=== PATIENT | female | born 1975 | race Caucasian/White ===

== ENCOUNTER 2018-05-27 08:50 | Day surgery (SDC) | payer BC ==
[2018-05-26 12:05] LABS: CHLORIDE,CL 105 mmol/L (98-107); SODIUM,NA 138 mmol/L (136-145)
[~2018-05-27 08:50] MED LIST: Fluorescein 5 ML Vial ONE; Sodium Chloride 0.9% 10 ML Syringe FLUSH PRN; Sodium Chloride 0.9% 2.5 ML Syringe FLUSH PRN; ceFAZolin 2 GM in Premix Bag 1 BAG IV ONE
[2018-05-27] MEDS ORDERED: Scopolamine 1.5 MG Transdermal Patch TRDERM PRN (09:30)
--- NOTE | 2018-05-27 09:34 | PCM.PREANE ---
Preanesthetic Assessment - Anesthesia/Transfusion/Family Hx Anesthesia History: Prior Anesthesia Without Reaction Other Type of Anesthesia Reaction Comment: hx: motion sickness, Always get sick w/anesthesia need pre-medication Family History of Anesthesia Reaction: No Transfusion History: No Prior Transfusion(s) Intubation History: Unknown - Review of Systems General: No Symptoms Pulmonary: No Symptoms Cardiovascular: No Symptoms Gastrointestinal: No Symptoms Neurological: No Symptoms Other: Reports: None - Physical Assessment Height: 1.57 m Weight: 53.524 kg ASA Class: 2 Mental Status: Alert & Oriented x3 Airway Class: Mallampati = 2 Dentition: Reports: Normal Dentition, Bridge (upper and lower left (back)), Implants (x1 upper right (back)) Thyro-Mental Finger Breadths: 3 Mouth Opening Finger Breadths: 3 ROM/Head Extension: Full Lungs: Clear to Auscultation, Normal Respiratory Effort Cardiovascular: Regular Rate, Regular Rhythm - Lab Values: Laboratory Last Values WBC 7.37 K/uL (4.0-11.0) 05/26/18 11:01 RBC 4.18 M/uL (4.30-5.90) L 05/26/18 11:01 Hgb 13.6 g/dL (12.0-16.0) 05/26/18 11:01 Hct 41.0 % (36.0-46.0) 05/26/18 11:01 MCV 98.1 fL (80.0-98.0) H 05/26/18 11:01 MCH 32.5 pg (27.0-32.0) H 05/26/18 11:01 MCHC 33.2 g/dL (31.0-37.0) 05/26/18 11:01 RDW Std Deviation 48.5 fl (28.0-62.0) 05/26/18 11:01 RDW Coeff of Aristides 14 % (11.0-15.0) 05/26/18 11:01 Plt Count 171 K/uL (150-400) 05/26/18 11:01 MPV 10.90 fL (7.40-12.00) 05/26/18 11:01 Nucleated RBC % 0.0 /100WBC 05/26/18 11:01 Nucleated RBCs # 0 K/uL 05/26/18 11:01 Sodium 138 mmol/L (136-145) 05/26/18 11:01 Potassium 4.1 mmol/L (3.5-5.1) 05/26/18 11:01 Chloride 105 mmol/L (98-107) 05/26/18 11:01 Carbon Dioxide 27.6 mmol/L (21.0-32.0) 05/26/18 11:01 BUN 12 mg/dL (7.0-18.0) 05/26/18 11:01 Creatinine 0.8 mg/dL (0.6-1.0) 05/26/18 11:01 Est Cr Clr Drug Dosing 72.45 mL/min 05/26/18 11:01 Estimated GFR (MDRD) > 60.0 ml/min 05/26/18 11:01 Glucose 83 mg/dL (74-106) 05/26/18 11:01 Calcium 8.9 mg/dL (8.5-10.1) 05/26/18 11:01 HCG, Qual NEGATIVE (NEG) 05/26/18 11:01 Blood Type O POSITIVE 05/26/18 11:01 Antibody Screen NEGATIVE 05/26/18 11:01 - Allergies Allergies/Adverse Reactions: Allergies Allergy/AdvReac Type Severity Reaction Status Date / Time No Known Allergies Allergy Verified 05/24/18 12:14 - Blood Blood Available: No - Anesthesia Plan Pre-Op Medication Ordered: None - Acknowledgements Anesthesia Type Planned: General Anesthesia Pt an Appropriate Candidate for the Planned Anesthesia: Yes Alternatives and Risks of Anesthesia Discussed w Pt/Guardian: Yes Pt/Guardian Understands and Agrees with Anesthesia Plan: Yes PreAnesthesia Questionnaire - Past Health History Medical/Surgical History: Denies Medical/Surgical History HEENT History: Reports: Other (See Below) Other HEENT History: wears glasses/contacts Cardiovascular History: Reports: Other (See Below) Other Cardiovascular History: varicose veins Genitourinary History: Reports: None 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: Musculoskeletal History: Reports: Back Pain, Chronic, Fracture Other Musculoskeletal History: hx fx foot Neurological History: Reports: None, Other (See Below) (h/o migrains, no more) Psychiatric History: Reports: Anxiety Endocrine/Metabolic History: Reports: None Hematologic History: Reports: Anemia Immunologic History: Reports: None Oncologic (Cancer) History: Reports: None Dermatologic History: Reports: None - Past Surgical History Head Surgeries/Procedures: Reports: None Female Surgical History: Reports: Breast Implant, Cystectomy, Other (See Below) Other Female Surgeries/Procedures: breast augmentation, laparotomy with ovarian cystectomy Musculoskeletal Surgical History: Reports: Arthroscopic Knee, Other (See Below) Other Musculoskeletal Surgeries/Procedures:: Right knee meniscectomy and cyst removed - SUBSTANCE USE Smoking Status *Q: Current Every Day Smoker (1 ppd) Tobacco Use Within Last Twelve Months: Cigarettes Recreational Drug Use History: No - HOME MEDS Home Medications: Home Meds Ibuprofen [Motrin] 2 - 3 tab PO ASDIRECTED PRN 05/24/18 [History] Melatonin 1 tab PO BEDTIME PRN 05/24/18 [History] - CURRENT (IN HOUSE) MEDS Current Meds: Current Medications Lactated Ringer's (Ringers, Lactated) 1,000 mls @ 500 mls/hr IV .BOLUS MARJORIE Scopolamine (Transderm-Scop) 1.5 mg TRDERM Q72H PRN PRN Reason: Nausea Sodium Chloride (Saline Flush) 10 ml FLUSH ASDIRECTED PRN PRN Reason: Keep Vein Open Sodium Chloride (Saline Flush) 2.5 ml FLUSH ASDIRECTED PRN PRN Reason: Keep Vein Open Discontinued Medications Fluorescein Sodium (Ak-Fluor) Confirm Administered Dose 5 ml .ROUTE .STK-MED ONE Stop: 05/27/18 07:22 Cefazolin Sodium/Dextrose 2 gm (/ Premix) 50 mls @ 100 mls/hr IV ONETIME ONE Stop: 05/26/18 10:30
[2018-05-27] MEDS: Lactated Ringers 1,000 ML IV SCH ×2 (09:35→16:42)
[2018-05-27] MEDS ORDERED: Rocuronium 10 MG/ML 10 ML Syringe ONE (10:14)
[2018-05-27] MEDS ORDERED: Lidocaine 2% 5 ML SDV ONE (10:14)
[2018-05-27] MEDS ORDERED: Ondansetron 4 MG/2 ML SDV ONE (10:14)
[2018-05-27] MEDS ORDERED: Propofol 200 MG/20 ML SDV ONE (10:15)
[2018-05-27] MEDS ORDERED: Midazolam 1 MG/ML 2 ML SDV ONE (10:15)
[2018-05-27] MEDS ORDERED: fentaNYL 250 MCG/5 ML SDV ONE (10:16)
[2018-05-27] MEDS ORDERED: Furosemide 40 MG/4 ML VIAL ONE (12:15)
[2018-05-27] MEDS ORDERED: Ketorolac 30 MG/ML SDV ONE (12:19)
[2018-05-27] MEDS: fentaNYL 100 MCG/2 ML SDV IVPUSH PRN ×4 (12:53→13:20)
[2018-05-27] MEDS ORDERED: Ketorolac 30 MG/ML SDV IVPUSH ONE (13:15)
[2018-05-27] MEDS ORDERED: Promethazine 25 MG/ML SDV IM PRN (13:15)
[2018-05-27] MEDS ORDERED: Morphine 4 MG/ML Syringe IVPUSH PRN (13:15)
[2018-05-27] MEDS ORDERED: Acetaminophen/oxyCODONE 325-5 MG Tab PO PRN ×2 (13:15)
--- NOTE | 2018-05-27 13:21 | PCM.OPNOTE ---
- General Post-Op/Procedure Note Date of Surgery/Procedure: 05/27/18 Operative Procedure(s): TVH,B. Salpengectomy, Cystoscopy and TVT Post-Op Diagnosis: Same Anesthesia Technique: General ET Tube Primary Surgeon: Santo Elmore [employer]asting Coal Miner: Andressa Harris EBL in mLs: 150 Complications: None Condition: Good Free Text/Narrative:: Intake & Output 05/26/18 05/27/18 05/27/18 22:59 06:59 14:59 Output Total 50 Balance -50
--- NOTE | 2018-05-27 13:29 | PCM.POSTAN ---
POST ANESTHESIA ASSESSMENT - MENTAL STATUS Mental Status: Alert, Oriented - RESPIRATORY Respiratory Status: Respiratory Rate WNL, Airway Patent, O2 Saturation Stable - CARDIOVASCULAR CV Status: Pulse Rate WNL, Blood Pressure Stable - GASTROINTESTINAL GI Status: No Symptoms - PAIN Pain Score: 3 - POST OP HYDRATION Hydration Status: Adequate & Stable - OBSERVATIONS Free Text/Narrative:: no anesthesia problems
[2018-05-27] MEDS: Ondansetron 4 MG/2 ML SDV IVPUSH PRN ×2 (14:49→20:52)
[2018-05-27] MEDS: Ketorolac 30 MG/ML SDV IVPUSH PRN (19:07)
[2018-05-27] MEDS ORDERED: Acetaminophen 1,000 MG in Premix Bag 1 BAG IV ONE (19:16)
--- NOTE | 2018-05-27 19:50 | PCM48HPAN ---
Post Anesthesia Note - EVALUATION WITHIN 48HRS OF ANESTHETIC Vital Signs in Normal Range: Yes Patient Participated in Evaluation: Yes Respiratory Function Stable: Yes Airway Patent: Yes Cardiovascular Function Stable: Yes Hydration Status Stable: Yes Pain Control Satisfactory: Yes (Resting quietly now) Nausea and Vomiting Control Satisfactory: Yes (Currently better) Mental Status Recovered: Yes Resp Rate: 16 - COMMENTS/OBSERVATIONS Free Text/Narrative:: Patient was having nausea, vomiting and pain when I initially entered her room. She was sitting up in bed with an emesis bag and stated that she thought she was having nausea from pain but pain meds make her more nauseated. RN contacted and patient given IV Toradol, IV Tylenol and Phenergan IM. Now in patient room she is asleep and resting quietly.
[2018-05-28] MEDS: Lactated Ringers 1,000 ML IV SCH ×3 (00:19→07:49)
[2018-05-28] MEDS: Ketorolac 30 MG/ML SDV IVPUSH PRN (01:10)
[2018-05-28] MEDS: Ondansetron 4 MG/2 ML SDV IVPUSH PRN ×2 (03:44→09:05)
[2018-05-28 06:14] LABS: CHLORIDE,CL 103 mmol/L (98-107); SODIUM,NA 136 mmol/L (136-145)
[2018-05-28 07:53] VITALS: BP 96/51
--- NOTE | 2018-05-28 10:47 | PCM.PN ---
- General Info Date of Service: 05/28/18 Functional Status: Reports: Pain Controlled - Review of Systems General: Reports: No Symptoms HEENT: Reports: No Symptoms Pulmonary: Reports: No Symptoms Cardiovascular: Reports: No Symptoms Gastrointestinal: Reports: No Symptoms Genitourinary: Reports: No Symptoms Musculoskeletal: Reports: No Symptoms Skin: Reports: No Symptoms Neurological: Reports: No Symptoms Psychiatric: Reports: No Symptoms - Patient Data Vitals - Most Recent: Last Vital Signs Temp 37.6 C 05/28/18 07:52 Pulse 56 L 05/28/18 07:52 Resp 14 05/28/18 07:52 BP 96/51 L 05/28/18 07:52 Pulse Ox 95 05/28/18 07:52 Weight - Most Recent: 53.524 kg I&O - Last 24 Hours: Intake & Output 05/27/18 05/28/18 05/28/18 22:59 06:59 14:59 Intake Total 320 120 Output Total 0 750 Balance 320 -630 Lab Results Last 24 Hours: Laboratory Results - last 24 hr 05/28/18 05/28/18 Range/Units 05:12 05:12 WBC 14.22 H (4.0-11.0) K/uL RBC 3.21 L (4.30-5.90) M/uL Hgb 10.5 L (12.0-16.0) g/dL Hct 31.1 L (36.0-46.0) % MCV 96.9 (80.0-98.0) fL MCH 32.7 H (27.0-32.0) pg MCHC 33.8 (31.0-37.0) g/dL RDW Std Deviation 47.1 (28.0-62.0) fl RDW Coeff of Aristides 13 (11.0-15.0) % Plt Count 148 L (150-400) K/uL MPV 11.20 (7.40-12.00) fL Neut % (Auto) 77.9 (48.0-80.0) % Lymph % (Auto) 11.4 L (16.0-40.0) % [place] % (Auto) 10.5 (0.0-15.0) % Eos % (Auto) 0.1 (0.0-7.0) % Baso % (Auto) 0.1 (0.0-1.5) % Neut # (Auto) 11.1 H (1.4-5.7) K/uL Lymph # (Auto) 1.6 (0.6-2.4) K/uL [place] # (Auto) 1.5 H (0.0-0.8) K/uL Eos # (Auto) 0.0 (0.0-0.7) K/uL Baso # (Auto) 0.0 (0.0-0.1) K/uL Nucleated RBC % 0.0 /100WBC Nucleated RBCs # 0 K/uL Sodium 136 (136-145) mmol/L Potassium 3.7 (3.5-5.1) mmol/L Chloride 103 (98-107) mmol/L Carbon Dioxide 25.8 (21.0-32.0) mmol/L BUN 10 (7.0-18.0) mg/dL Creatinine 0.9 (0.6-1.0) mg/dL Est Cr Clr Drug Dosing 64.40 mL/min Estimated GFR (MDRD) > 60.0 ml/min Glucose 115 H (74-106) mg/dL Calcium 8.1 L (8.5-10.1) mg/dL Med Orders - Current: Current Medications Fentanyl (Sublimaze) 50 mcg IVPUSH SEECOMMENT PRN PRN Reason: Pain (moderate 4-6) Last Admin: 05/27/18 13:20 Dose: 50 mcg Lactated Ringer's (Ringers, Lactated) 1,000 mls @ 500 mls/hr IV .BOLUS REPLACED BY [facility] Last Infusion: 05/27/18 11:35 Dose: Infused Lactated Ringer's (Ringers, Lactated) 1,000 mls @ 125 mls/hr IV ASDIRECTED REPLACED BY [facility] Last Admin: 05/28/18 07:49 Dose: 125 mls/hr Ketorolac Tromethamine (Toradol) 30 mg IVPUSH Q6H PRN PRN Reason: Pain (severe 7-10) Stop: 06/01/18 13:15 Last Admin: 05/28/18 01:10 Dose: 30 mg Morphine Sulfate (Morphine) 4 mg IVPUSH Q2H PRN PRN Reason: Pain (severe 7-10) Last Admin: 05/28/18 03:50 Dose: 4 mg Ondansetron HCl (Zofran) 4 mg IVPUSH Q6H PRN PRN Reason: Nausea/Vomiting Last Admin: 05/28/18 09:05 Dose: 4 mg Oxycodone/Acetaminophen (Percocet 325-5 Mg) 1 tab PO Q4H PRN PRN Reason: Pain (moderate 4-6) Oxycodone/Acetaminophen (Percocet 325-5 Mg) 2 tab PO Q4H PRN PRN Reason: Pain (moderate 4-6) Last Admin: 05/28/18 09:07 Dose: 2 tab Promethazine HCl (Phenergan) 25 mg IM Q6H PRN PRN Reason: Nausea/Vomiting Last Admin: 05/27/18 19:13 Dose: 25 mg Scopolamine (Transderm-Scop) 1.5 mg TRDERM Q72H PRN PRN Reason: Nausea Last Admin: 05/27/18 09:37 Dose: 1.5 mg Sodium Chloride (Saline Flush) 10 ml FLUSH ASDIRECTED PRN PRN Reason: Keep Vein Open Sodium Chloride (Saline Flush) 2.5 ml FLUSH ASDIRECTED PRN PRN Reason: Keep Vein Open Discontinued Medications Fentanyl (Sublimaze) Confirm Administered Dose 250 mcg .ROUTE .STK-MED ONE Stop: 05/27/18 10:17 Fluorescein Sodium (Ak-Fluor) Confirm Administered Dose 5 ml .ROUTE .STK-MED ONE Stop: 05/27/18 07:22 Furosemide (Lasix) Confirm Administered Dose 40 mg .ROUTE .STK-MED ONE Stop: 05/27/18 12:16 Cefazolin Sodium/Dextrose 2 gm (/ Premix) 50 mls @ 100 mls/hr IV ONETIME ONE Stop: 05/26/18 10:30 Last Admin: 05/27/18 14:17 Dose: Not Given Acetaminophen (Ofirmev) Confirm Administered Dose 100 mls @ as directed IV .STK- MED ONE Stop: 05/27/18 09:48 Cefazolin Sodium/Dextrose (Ancef) Confirm Administered Dose 50 mls @ as directed .ROUTE .STK-MED ONE Stop: 05/27/18 10:25 Acetaminophen 1,000 mg/ Premix 100 mls @ 400 mls/hr IV NOW ONE Stop: 05/27/18 19:30 Last Admin: 07/12/18 19:22 Dose: 400 mls/hr Ketorolac Tromethamine (Toradol) Confirm Administered Dose 30 mg .ROUTE .STK- MED ONE Stop: 05/27/18 12:20 Ketorolac Tromethamine (Toradol) 30 mg IVPUSH ONETIME ONE Stop: 05/27/18 13:16 Last Admin: 05/27/18 14:17 Dose: Not Given Lidocaine (Xylocaine-Mpf 2%) Confirm Administered Dose 5 ml .ROUTE .STK-MED ONE Stop: 05/27/18 10:15 Midazolam HCl (Versed 1 Mg/Ml) Confirm Administered Dose 2 mg .ROUTE .STK-MED ONE Stop: 05/27/18 10:16 Ondansetron HCl (Zofran) Confirm Administered Dose 4 mg .ROUTE .STK-MED ONE Stop: 05/27/18 10:15 Propofol (Diprivan 20 Ml) Confirm Administered Dose 200 mg .ROUTE .STK-MED ONE Stop: 05/27/18 10:16 Rocuronium [place] (Zemuron) Confirm Administered Dose 100 mg .ROUTE .STK-MED ONE Stop: 05/27/18 10:15 - Exam General: Alert, Oriented HEENT: Pupils Equal, Pupils Reactive, EOMI, Mucous Membr. Moist/[place] Neck: Supple Lungs: Clear to Auscultation, Normal Respiratory Effort Cardiovascular: Regular Rate, Regular Rhythm GI/Abdominal Exam: Normal Bowel Sounds, Soft, Non-Tender, No Organomegaly, No Distention, No Abnormal Bruit, No Mass, Pelvis Stable (Female) Exam: Normal External Exam, Normal Speculum Exam, Normal Bimanual Exam Back Exam: Normal Inspection, Full Range of Motion Extremities: Normal Inspection, Normal Range of Motion, Non-Tender, No Pedal Edema, Normal Capillary Refill Skin: Warm, Dry, Intact Wound/Incisions: Healing Well Neurological: No New Focal Deficit Psy/Mental Status: Alert, Normal Affect, Normal Mood - Problem List Review Problem List Initiated/Reviewed/Updated: Yes - My Orders Last 24 Hours: My Active Orders 05/27/18 13:15 Patient Status [ADT] Routine Notify Provider Vital Signs [RC] ASDIRECTED RT Incentive Spirometry [RC] Q2HWA Up With Assistance [RC] PER UNIT ROUTINE Up ad Sravanthi [RC] PER UNIT ROUTINE Vital Signs [RC] Q4H Acetaminophen/oxyCODONE [Percocet 325-5 MG] 1 tab PO Q4H PRN Acetaminophen/oxyCODONE [Percocet 325-5 MG] 2 tab PO Q4H PRN Ketorolac [Toradol] 30 mg IVPUSH Q6H PRN Morphine 4 mg IVPUSH Q2H PRN Ondansetron [Zofran] 4 mg IVPUSH Q6H PRN Promethazine [Phenergan] 25 mg IM Q6H PRN Peripheral IV Discontinue [OM.PC] Routine Sequential Compression Device [OM.PC] Per Unit Routine Resuscitation Status Routine 05/27/18 16:15 Lactated Ringers [Ringers, Lactated] 1,000 ml IV ASDIRECTED 05/27/18 Dinner Regular Diet [DIET] - Assessment Assessment:: doing well.
--- NOTE | 2018-05-28 12:25 | OR ---
SURGEON: Santo Elmore MD DATE OF PROCEDURE: 05/27/2018 PREOPERATIVE DIAGNOSES: 1. Menometrorrhagia. 2. Stress urinary incontinence. POSTOPERATIVE DIAGNOSES: 1. Menometrorrhagia. 2. Stress urinary incontinence. OPERATIONS PERFORMED: Total vaginal hysterectomy, bilateral vaginal salpingectomy preserving both ovaries, Solyx TVT, and cystoscopy. GASOLINE SERVICE ATTENDANT: SKYE Patino. ANESTHESIA: General endotracheal intubation, Joyce Isaias. ESTIMATED BLOOD LOSS: Less than 100 mL. COMPLICATIONS: None. FINDINGS: Uterus about 8 week size. The patient has abnormal urethrovesical angle. INDICATION FOR SURGERY: [place] refer to the admit note. PROCEDURE IN DETAIL: The patient was brought to the OR, properly identified. After adequate level of anesthesia, the patient placed in lithotomy position, prepped and draped in sterile fashion as usual. A circular incision in the vaginal mucosa was done around the cervix and then the posterior cul-de-sac was entered with the Howe scissor posteriorly. Short weighted speculum replaced with extending long weighted speculum. The uterosacral ligament identified from both sides, clamped with curved Zeppelin, transected, and suture ligated with 2-0 Vicryl pop-off and held for further identification. The same thing done with the cardinal ligament and the cervicovesical space opened. The bladder retracted completely away from the operative field. The broad ligaments clamped with a curved Zeppelin, transected, and suture ligated with 2-0 Vicryl pop-off. The uterine vessel suture ligated at this step. The uterus was removed and the superior pedicle was clamped at 90 degree Zeppelin. Both the tubes included with the specimen. Both ovaries are preserved. Then the superior pedicle was tied with 2-0 Vicryl twice on both sides. Inspection of the operative field shows no oozing, no bleeding. Then the vaginal cuff was closed with 2-0 Vicryl interrupted figure-of- eight suture. While we were doing that, after that the anterior vaginal wall beneath the urethra was injected with copious amount of normal saline and opened in the midline, dissected laterally in a tunneling fashion to make a tunnel and room for the Solyx TVT. The Solyx TVT placed in place and put with undue amount of tension to elevate the urethrovesical angle and once this got accomplished, then the vaginal cuff was closed with 2-0 Vicryl and 3-0 Vicryl continuous. While we were doing that, we asked the Anesthesia people to give the patient 5 mg of fluorescein and then cystoscopy performed. The bladder was intact. Both ureteric orifices were seen with the dye coming from both of them, thus the patency of both ureters verified. Satisfied with these findings, the procedure ended. Instruments, hardware retrieved from the vagina. Instrument sponge count was correct. The patient tolerated the procedure well, went to recovery room in stable general condition. ASHLEY FIELDS /[id number]
== END 2018-05-28 12:55 | disposition home or self-care (01) ==
LOC: MW.SDS 08:50 → MW.MS 13:41 → MW.SDS 05-28 12:55
PROVIDERS: ATTEND Obstetrics & Gynecology
DX: N92.1 Excessive and frequent menstruation with irregular cycle (principal); N39.3 Stress incontinence (female) (male); I10 Essential (primary) hypertension; F17.210 Nicotine dependence, cigarettes, uncomplicated; Z79.899 Other long term (current) drug therapy; Z88.6 Allergy status to analgesic agent; Z88.5 Allergy status to narcotic agent
CPT/HCPCS: 36415; 57288; 58262; 80048; 84703; 85025; 85027; 86850; 86900; 86901; A9270; J0690; J1885; J1940; J2250; J2270; J2405; J2550; J3010; J7120; C1771; J2704

== ENCOUNTER 2019-11-01 17:47 | Observation (INO) | payer BC ==
[2019-11-01] MEDS ORDERED: Ondansetron 4 MG/2 ML SDV IVPUSH ONE (18:04)
[2019-11-01] MEDS ORDERED: Sodium Chloride 0.9% 1,000 ML IV ONE (18:04)
[2019-11-01] MEDS ORDERED: Ketorolac 30 MG/ML SDV IVPUSH ONE (18:04)
--- NOTE | 2019-11-01 18:08 | EDM.PDOC ---
<Efren Hunt - Last Filed: 11/01/19 18:47> ED HPI GENERAL MEDICAL PROBLEM - General Chief Complaint: Abdominal Pain Stated Complaint: ABDOMINAL PAIN Time Seen by Provider: 11/01/19 18:05 Source of Information: Reports: Patient - History of Present Illness INITIAL COMMENTS - FREE TEXT/NARRATIVE: HISTORY AND PHYSICAL: History of present illness: [patient presents with abd pain 8/10 periumbilical pain that began at 1am, patient c/o nausea no vomit, no f/c/s/cp/iqbal/d/palp h/o BALDEV ] Review of systems: As per history of present illness and below otherwise all systems reviewed and negative. Past medical history: As per history of present illness and as reviewed below otherwise noncontributory. Surgical history: As per history of present illness and as reviewed below otherwise noncontributory. Social history: No reported history of drug or alcohol abuse. Family history: As per history of present illness and as reviewed below otherwise noncontributory. Physical exam: HEENT: Atraumatic, normocephalic, pupils reactive, negative for conjunctival pallor or scleral icterus, mucous membranes moist, throat clear, neck supple, nontender, trachea midline. Lungs: Clear to auscultation, breath sounds equal bilaterally, chest nontender. Heart: S1S2, regular, negative for clicks, rubs, or JVD. Abdomen: Soft, nondistended, tenderness on exam with guarding, Negative for masses or hepatosplenomegaly. Negative for costovertebral tenderness. Pelvis: Stable nontender. Genitourinary: Deferred. Rectal: Deferred. Extremities: Atraumatic, negative for cords or calf pain. Neurovascular unremarkable. Neuro: Awake, alert, oriented. Cranial nerves II through XII unremarkable. Cerebellum unremarkable. Motor and sensory unremarkable throughout. Exam nonfocal. Diagnostics: [cbc, cmp, ua, lip, lactic acid, BCx X 2 ct abd/pelvis w wo ] Therapeutics: [NS toradol zofran patient will be signed out to Dr. Whitten to follow CT / lab and final disposition ] Impression: [abdominal pain ] Definitive disposition and diagnosis as appropriate pending reevaluation and review of above. right lower abd Pain Score (Numeric/FACES): 10 - Related Data Allergies Allergy/AdvReac Type Severity Reaction Status Date / Time No Known Allergies Allergy Verified 12/17/19 18:13 Home Meds: Home Meds Ibuprofen [Motrin] 2 - 3 tab PO ASDIRECTED PRN 05/24/18 [History] Melatonin 1 tab PO BEDTIME PRN 05/24/18 [History] FLUoxetine HCl [Fluoxetine HCl] 1 tab PO DAILY 11/01/19 [History] busPIRone HCl [Buspirone HCl] 1 tab PO DAILY 11/01/19 [History] Past Medical History - Past Health History Medical/Surgical History: Denies Medical/Surgical History HEENT History: Reports: Other (See Below) Other HEENT History: wears glasses/contacts Cardiovascular History: Reports: Other (See Below) Other Cardiovascular History: varicose veins Genitourinary History: Reports: None 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: Musculoskeletal History: Reports: Back Pain, Chronic, Fracture Other Musculoskeletal History: hx fx foot Neurological History: Reports: None, Other (See Below) (h/o migrains, no more) Psychiatric History: Reports: Anxiety Endocrine/Metabolic History: Reports: None Hematologic History: Reports: Anemia Immunologic History: Reports: None Oncologic (Cancer) History: Reports: None Dermatologic History: Reports: None - Past Surgical History Head Surgeries/Procedures: Reports: None Female Surgical History: Reports: Breast Implant, Cystectomy, Other (See Below) Other Female Surgeries/Procedures: breast augmentation, laparotomy with ovarian cystectomy Musculoskeletal Surgical History: Reports: Arthroscopic Knee, Other (See Below) Other Musculoskeletal Surgeries/Procedures:: Right knee meniscectomy and cyst removed Social & Family History - Family History Family Medical History: Noncontributory Course - Vital Signs Last Recorded V/S: Last Vital Signs Temp 37.2 C 11/01/19 18:05 Pulse 72 11/01/19 20:38 Resp 18 11/01/19 18:59 BP 116/74 11/01/19 20:38 Pulse Ox 98 11/01/19 18:59 - Orders/Labs/Meds Orders: Active Orders 24 hr Category Date Time Status Notify Provider Consults [RC] ASDIRECTED Care 11/01/19 20:52 Ordered Consult to Physician [CONS] Stat Cons 11/01/19 20:52 Ordered CULTURE BLOOD [BC] Stat Lab 11/01/19 18:23 Received CULTURE BLOOD [BC] Stat Lab 11/01/19 18:34 Received Sodium Chloride 0.9% [Normal Saline] 1,000 ml Med 11/01/19 20:30 Active IV ASDIRECTED Blood Culture x2 Reflex Set [OM.PC] Stat Oth 11/01/19 18:13 Ordered Medication Orders Sodium Chloride (Normal Saline) 1,000 mls @ 150 mls/hr IV ASDIRECTED MARJORIE Last Admin: 11/01/19 20:36 Dose: 150 mls/hr Labs: Laboratory Tests 11/01/19 11/01/19 11/01/19 Range/Units 18:23 18:23 18:23 WBC 15.39 H (4.0-11.0) K/uL RBC 4.22 L (4.30-5.90) M/uL Hgb 14.3 (12.0-16.0) g/dL Hct 41.8 (36.0-46.0) % MCV 99.1 H (80.0-98.0) fL MCH 33.9 H (27.0-32.0) pg MCHC 34.2 (31.0-37.0) g/dL RDW Std Deviation 49.4 (28.0-62.0) fl RDW Coeff of Aristides 14 (11.0-15.0) % Plt Count 191 (150-400) K/uL MPV 10.90 (7.40-12.00) fL Neut % (Auto) 84.0 H (48.0-80.0) % Lymph % (Auto) 10.6 L (16.0-40.0) % [place] % (Auto) 4.7 (0.0-15.0) % Eos % (Auto) 0.6 (0.0-7.0) % Baso % (Auto) 0.1 (0.0-1.5) % Neut # (Auto) 12.9 H (1.4-5.7) K/uL Lymph # (Auto) 1.6 (0.6-2.4) K/uL Kenton # (Auto) 0.7 (0.0-0.8) K/uL Eos # (Auto) 0.1 (0.0-0.7) K/uL Baso # (Auto) 0.0 (0.0-0.1) K/uL Nucleated RBC % 0.0 /100WBC Nucleated RBCs # 0 K/uL Lactate 1.1 (0.20-2.00) mmol/L Sodium 138 (136-145) mmol/L Potassium 3.5 (3.5-5.1) mmol/L Chloride 101 (98-107) mmol/L Carbon Dioxide 25.3 (21.0-32.0) mmol/L BUN 10 (7.0-18.0) mg/dL Creatinine 0.8 (0.6-1.0) mg/dL Est Cr Clr Drug Dosing 71.71 mL/min Estimated GFR (MDRD) > 60.0 ml/min Glucose 115 H (74-106) mg/dL Calcium 9.1 (8.5-10.1) mg/dL Total Bilirubin 0.5 (0.2-1.0) mg/dL AST 28 (15-37) IU/L ALT 33 (14-63) IU/L Alkaline Phosphatase 90 (46-116) U/L Total Protein 7.4 (6.4-8.2) g/dL Albumin 3.8 (3.4-5.0) g/dL Globulin 3.6 (2.6-4.0) g/dL Albumin/Globulin Ratio 1.1 (0.9-1.6) Lipase 87 (73-393) U/L Urine Color Urine Appearance Urine pH (5.0-8.0) Ur Specific [place] (1.001-1.035) Urine Protein (NEGATIVE) mg/dL Urine Glucose (UA) (NEGATIVE) mg/dL Urine Ketones (NEGATIVE) mg/dL Urine Occult Blood (NEGATIVE) Urine Nitrite (NEGATIVE) Urine Bilirubin (NEGATIVE) Urine Urobilinogen (<2.0) EU/dL Ur Leukocyte Esterase (NEGATIVE) 11/01/19 Range/Units 20:25 WBC (4.0-11.0) K/uL RBC (4.30-5.90) M/uL Hgb (12.0-16.0) g/dL Hct (36.0-46.0) % MCV (80.0-98.0) fL MCH (27.0-32.0) pg MCHC (31.0-37.0) g/dL RDW Std Deviation (28.0-62.0) fl RDW Coeff of Aristides (11.0-15.0) % Plt Count (150-400) K/uL MPV (7.40-12.00) fL Neut % (Auto) (48.0-80.0) % Lymph % (Auto) (16.0-40.0) % [place] % (Auto) (0.0-15.0) % Eos % (Auto) (0.0-7.0) % Baso % (Auto) (0.0-1.5) % Neut # (Auto) (1.4-5.7) K/uL Lymph # (Auto) (0.6-2.4) K/uL [place] # (Auto) (0.0-0.8) K/uL Eos # (Auto) (0.0-0.7) K/uL Baso # (Auto) (0.0-0.1) K/uL Nucleated RBC % /100WBC Nucleated RBCs # K/uL Lactate (0.20-2.00) mmol/L Sodium (136-145) mmol/L Potassium (3.5-5.1) mmol/L Chloride (98-107) mmol/L Carbon Dioxide (21.0-32.0) mmol/L BUN (7.0-18.0) mg/dL Creatinine (0.6-1.0) mg/dL Est Cr Clr Drug Dosing mL/min Estimated GFR (MDRD) ml/min Glucose (74-106) mg/dL Calcium (8.5-10.1) mg/dL Total Bilirubin (0.2-1.0) mg/dL AST (15-37) IU/L ALT (14-63) IU/L Alkaline Phosphatase (46-116) U/L Total Protein (6.4-8.2) g/dL Albumin (3.4-5.0) g/dL Globulin (2.6-4.0) g/dL Albumin/Globulin Ratio (0.9-1.6) Lipase (73-393) U/L Urine Color YELLOW Urine Appearance CLEAR Urine pH 6.5 (5.0-8.0) Ur Specific [place] <= 1.005 (1.001-1.035) Urine Protein NEGATIVE (NEGATIVE) mg/dL Urine Glucose (UA) NEGATIVE (NEGATIVE) mg/dL Urine Ketones NEGATIVE (NEGATIVE) mg/dL Urine Occult Blood NEGATIVE (NEGATIVE) Urine Nitrite NEGATIVE (NEGATIVE) Urine Bilirubin NEGATIVE (NEGATIVE) Urine Urobilinogen 0.2 (<2.0) EU/dL Ur Leukocyte Esterase NEGATIVE (NEGATIVE) Meds: Medications Generic Name Dose Route Start Last Admin Trade Name German PRN Reason Stop Dose Admin Sodium Chloride 1,000 mls @ 150 mls/hr 11/01/19 20:30 11/01/19 20:36 Normal Saline IV 150 mls/hr ASDIRECTED MARJORIE Administration Discontinued Medications Generic Name Dose Route Start Last Admin Trade Name German PRN Reason Stop Dose Admin Sodium Chloride 1,000 mls @ 999 mls/hr 11/01/19 18:04 11/01/19 18:27 Normal Saline IV 11/01/19 19:04 999 mls/hr STAT ONE Administration Ketorolac Tromethamine 30 mg 11/01/19 18:04 11/01/19 18:27 Toradol IVPUSH 11/01/19 18:05 30 mg ONETIME ONE Administration Morphine Sulfate 2 mg 11/01/19 18:55 11/01/19 18:57 Morphine IVPUSH 11/01/19 18:56 2 mg ONETIME ONE Administration Morphine Sulfate Confirm 11/01/19 18:54 11/01/19 19:00 Morphine Administered 11/01/19 18:55 Not Given Dose 2 mg .ROUTE .STK-MED ONE Ondansetron HCl 8 mg 11/01/19 18:04 11/01/19 18:27 Zofran IVPUSH 11/01/19 18:05 8 mg ONETIME ONE Administration Departure - Departure Disposition: Refer to Observation Clinical Impression: Enteritis Abdominal pain Qualifiers: Abdominal location: periumbilical Qualified Code(s): R10.33 - Periumbilical pain Leukocytosis Qualifiers: Leukocytosis type: unspecified Qualified Code(s): D72.829 - Elevated white blood cell count, unspecified - Discharge Information Referrals: Mary Sebastian MD [Primary Care Provider] - Forms: ED Department Discharge Sepsis Event Note - Focused Exam Vital Signs: Vital Signs Temp Pulse Resp BP Pulse Ox 11/01/19 20:38 72 116/74 11/01/19 18:59 75 18 116/53 L 98 11/01/19 18:05 37.2 C 78 20 113/50 L 100 Date Exam was Performed: 11/01/19 Time Exam was Performed: 18:47 - My Orders Last 24 Hours: My Active Orders 11/01/19 20:30 Sodium Chloride 0.9% [Normal Saline] 1,000 ml IV ASDIRECTED 11/01/19 20:52 Notify Provider Consults [RC] ASDIRECTED Consult to Physician [CONS] Stat - Assessment/Plan Last 24 Hours: My Active Orders 11/01/19 20:30 Sodium Chloride 0.9% [Normal Saline] 1,000 ml IV ASDIRECTED 11/01/19 20:52 Notify Provider Consults [RC] ASDIRECTED Consult to Physician [CONS] Stat <Guera Whitten - Last Filed: 11/01/19 20:58> ED HPI GENERAL MEDICAL PROBLEM - History of Present Illness INITIAL COMMENTS - FREE TEXT/NARRATIVE: Fish dictating an addendum note as I have assumed care of this case at 7 PM. I have reviewed all the labs and the significant WBC count of 15,000. The patient has a history of a partial hysterectomy but has no other MANAGER PATHOLOGY issues. She is currently weaned to CAT scan and I will follow-up that test results and discuss with our surgeon on-call Dr. Dewey per Dr. Cohen's instructions. 1941: I had to discuss another case with Dr. Dewey and I did mention this patient to her and the findings up to this point. She would like me to recontact her once the CT scan is available for reevaluation and her input. 2047: Case was discussed with Dr. Aguilar who reviewed the CAT scan and would like the patient to be admitted to medicine and she will come and evaluate the patient and do a formal consult. She would like IV fluids and bowel rest with ice chips only and no antibiotics at this time. The patient was made aware of these findings and of this plan and she is agreeable. I will discuss the case with the hospitalist Dr Pierson for admit Please add to impression above: Ill-defined small bowel inflammation/enteritis, left ovarian/adnexal cyst with leukocytosis ED ROS GENERAL - Review of Systems Review Of Systems: Comprehensive ROS is negative, except as noted in HPI. ED EXAM, GENERAL - Physical Exam Exam: See Below (see dictation) Departure - Departure Time of Disposition: 20:58 Condition: Good Sepsis Event Note - Focused Exam Date Exam was Performed: 11/01/19 Time Exam was Performed: 20:55 - My Orders Last 24 Hours: My Active Orders 11/01/19 20:30 Sodium Chloride 0.9% [Normal Saline] 1,000 ml IV ASDIRECTED 11/01/19 20:52 Notify Provider Consults [RC] ASDIRECTED Consult to Physician [CONS] Stat - Assessment/Plan Last 24 Hours: My Active Orders 11/01/19 20:30 Sodium Chloride 0.9% [Normal Saline] 1,000 ml IV ASDIRECTED 11/01/19 20:52 Notify Provider Consults [RC] ASDIRECTED Consult to Physician [CONS] Stat
[2019-11-01] MEDS ORDERED: Morphine 2 MG/ML Syringe ONE (18:54)
[2019-11-01] MEDS ORDERED: Morphine 2 MG/ML Syringe IVPUSH ONE (18:55)
[2019-11-01 19:32] LABS: BLOOD UREA NITROGEN,BUN 10 mg/dL (7.0-18.0); CARBON DIOXIDE,CO2 25.3 mmol/L (21.0-32.0); CHLORIDE,CL 101 mmol/L (98-107); GLUCOSE RANDOM 115 mg/dL (74-106); LIPASE 87 U/L (73-393); POTASSIUM,K 3.5 mmol/L (3.5-5.1); SODIUM,NA 138 mmol/L (136-145)
[2019-11-01] MEDS: Sodium Chloride 0.9% 1,000 ML IV SCH (20:36)
--- NOTE | 2019-11-01 20:49 | CT ---
INDICATION: Lower abdominal pain TECHNIQUE: CT abdomen and pelvis acquired without and with IV contrast. 100 mL of Isovue 370 administered. COMPARISON: None available FINDINGS: Lower chest: Unremarkable. Liver: Unremarkable. Spleen: Unremarkable. Pancreas: Unremarkable. Gallbladder and bile ducts: Unremarkable. Adrenal glands: Unremarkable. Kidneys: High density foci in the renal collecting systems on series 201 could represent nonobstructive calcifications and/or foci of contrast excretion from a prior administration, if there is such history. No hydronephrosis. No ureteral calcifications. GI tract: Some fluid and gas-filled small bowel segments in the abdomen and pelvis, nonspecific. A short segment of focal beaking and luminal narrowing in a lower abdominal small bowel segment on images 75-80 of series 301, with apparent slight regional mesenteric vascular congestion, however, without abnormal dilatation of small bowel segments proximal to this point. A normal appendix. No significant pericolonic changes. Stool throughout the colon. Vascular structures: Minor early atherosclerotic changes. Lymph nodes: Unremarkable. Miscellaneous: Small pelvic free fluid. No free air. A tiny right paramedian fat containing supraumbilical ventral hernia. Pelvic Organs: Hysterectomy. A lobulated, septated left adnexal cystic structure, versus 2 adjacent lesions, measuring up to 4.2 x 3.4 x 3.0 cm in total dimension. No gross bladder abnormality seen. Small amount of excreted contrast in the posterior bladder on series 301. Bones: Degenerative changes of the lumbosacral junction. Small degenerative subcortical cyst formation in the left acetabular roof. IMPRESSION: Some fluid and gas-filled small bowel segments. A short segment of beaking and luminal narrowing in a lower abdominal small bowel segment, however, without abnormal dilatation proximal to this point. The findings could represent enteritis or mild ileus, however an early or partial obstruction is not excluded. Correlate clinically and if indicated, follow-up with serial KUBs. Small pelvic free fluid. A 4.2 cm lobulated/septated left adnexal cystic structure, versus 2 adjacent cysts. Correlate with pelvic sonography. Bilateral renal densities on the precontrast images could represent nonobstructive calcifications and/or foci of contrast excretion from a prior administration. No obstructive uropathy. Dictated by John Franklin MD @ 11/01/2019 8:44:58 PM Please note that all CT scans at this facility use dose modulation, iterative reconstruction, and/or weight-based dosing when appropriate to reduce radiation dose to as low as reasonably achievable. Dictated by: John Franklin MD @ 11/01/2019 20:46:57 (Electronically Signed)
[2019-11-01] MEDS ORDERED: Iopamidol 755 MG/ML 500 ML Multipack Bottle IVPUSH ONE (20:58)
--- NOTE | 2019-11-01 21:39 | PCM.CONS ---
H&P History of Present Illness - General Date of Service: 11/01/19 Admit Problem/Dx: Admission Diagnosis/Problem Admission Diagnosis/Problem Abdominal pain Source of Information: Patient History Limitations: Reports: No Limitations - History of Present Illness Initial Comments - Free Text/Narative: Patient is a 44 year old female who presents with abdominal pain. It started at 2 am this morning and did not improve. She states that yesterday she had diarrhea. She has been passing gas before. She has never had any symptoms like this in the past. She states that her daughter has been sick but with an URI. She felt warm and had chills at home. Her vitals were stable on arrival. Her physical exam revealed mild-moderate distension with lower abdominal discomfort. She had a WBC of 15K with a left shift. CT scan of the abdomen pelvis showed a left adenexal cyst as well as a possible short segment of luminal narrowing in a lower abdominal small bowel segment with no evidence of dilation. The findings "could represent enteritis or mild ileus or early or partial obstruction." right lower abd Pain Score (Numeric/FACES): 10 - Related Data Allergies/Adverse Reactions: Allergies Allergy/AdvReac Type Severity Reaction Status Date / Time No Known Allergies Allergy Verified 11/01/19 18:13 Home Medications: Home Meds Ibuprofen [Motrin] 2 - 3 tab PO ASDIRECTED PRN 05/24/18 [History] Melatonin 1 tab PO BEDTIME PRN 05/24/18 [History] FLUoxetine HCl [Fluoxetine HCl] 1 tab PO DAILY 11/01/19 [History] busPIRone HCl [Buspirone HCl] 1 tab PO DAILY 11/01/19 [History] Past Medical History - Past Health History Medical/Surgical History: Denies Medical/Surgical History HEENT History: Reports: Other (See Below) Other HEENT History: wears glasses/contacts Cardiovascular History: Reports: Other (See Below) Other Cardiovascular History: varicose veins Genitourinary History: Reports: None 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: Musculoskeletal History: Reports: Back Pain, Chronic, Fracture Other Musculoskeletal History: hx fx foot Neurological History: Reports: None, Other (See Below) (h/o migrains, no more) Psychiatric History: Reports: Anxiety Endocrine/Metabolic History: Reports: None Hematologic History: Reports: Anemia Immunologic History: Reports: None Oncologic (Cancer) History: Reports: None Dermatologic History: Reports: None - Past Surgical History Head Surgeries/Procedures: Reports: None Female Surgical History: Reports: Breast Implant, Cystectomy, Other (See Below) Other Female Surgeries/Procedures: breast augmentation, laparotomy with ovarian cystectomy Musculoskeletal Surgical History: Reports: Arthroscopic Knee, Other (See Below) Other Musculoskeletal Surgeries/Procedures:: Right knee meniscectomy and cyst removed Social & Family History - Family History Family Medical History: Noncontributory - Tobacco Use Smoking Status *Q: Current Every Day Smoker Years of Tobacco use: 25 Packs/Tins Daily: 0.5 - Recreational Drug Use Recreational Drug Use: No H&P Review of Systems - Review of Systems: Review Of Systems: Comprehensive ROS is negative, except as noted in HPI. Exam - Exam Exam: See Below - Vital Signs Vital Signs: Last Vital Signs Temp 37.2 C 11/01/19 18:05 Pulse 72 11/01/19 20:38 Resp 18 11/01/19 18:59 BP 116/74 11/01/19 20:38 Pulse Ox 98 11/01/19 18:59 Weight: 58.967 kg - Exam General: Alert, Oriented, Mild Distress HEENT: Conjunctiva Clear, Mucosa Moist & [place], Posterior Pharynx Clear Lungs: Clear to Auscultation, Normal Respiratory Effort Cardiovascular: Regular Rate, Regular Rhythm GI/Abdominal Exam: Soft, No Mass, Distended (mild-moderate distension ), Tender (lower abdomen ). No: Guarding, Rigid, Rebound Extremities: Normal Inspection, Normal Range of Motion - Patient Data Lab Results Last 24 hrs: Laboratory Results - last 24 hr 11/01/19 11/01/19 11/01/19 Range/Units 18:23 18:23 18:23 WBC 15.39 H (4.0-11.0) K/uL RBC 4.22 L (4.30-5.90) M/uL Hgb 14.3 (12.0-16.0) g/dL Hct 41.8 (36.0-46.0) % MCV 99.1 H (80.0-98.0) fL MCH 33.9 H (27.0-32.0) pg MCHC 34.2 (31.0-37.0) g/dL RDW Std Deviation 49.4 (28.0-62.0) fl RDW Coeff of Aristides 14 (11.0-15.0) % Plt Count 191 (150-400) K/uL MPV 10.90 (7.40-12.00) fL Neut % (Auto) 84.0 H (48.0-80.0) % Lymph % (Auto) 10.6 L (16.0-40.0) % [place] % (Auto) 4.7 (0.0-15.0) % Eos % (Auto) 0.6 (0.0-7.0) % Baso % (Auto) 0.1 (0.0-1.5) % Neut # (Auto) 12.9 H (1.4-5.7) K/uL Lymph # (Auto) 1.6 (0.6-2.4) K/uL [place] # (Auto) 0.7 (0.0-0.8) K/uL Eos # (Auto) 0.1 (0.0-0.7) K/uL Baso # (Auto) 0.0 (0.0-0.1) K/uL Nucleated RBC % 0.0 /100WBC Nucleated RBCs # 0 K/uL Lactate 1.1 (0.20-2.00) mmol/L Sodium 138 (136-145) mmol/L Potassium 3.5 (3.5-5.1) mmol/L Chloride 101 (98-107) mmol/L Carbon Dioxide 25.3 (21.0-32.0) mmol/L BUN 10 (7.0-18.0) mg/dL Creatinine 0.8 (0.6-1.0) mg/dL Est Cr Clr Drug Dosing 71.71 mL/min Estimated GFR (MDRD) > 60.0 ml/min Glucose 115 H (74-106) mg/dL Calcium 9.1 (8.5-10.1) mg/dL Total Bilirubin 0.5 (0.2-1.0) mg/dL AST 28 (15-37) IU/L ALT 33 (14-63) IU/L Alkaline Phosphatase 90 (46-116) U/L Total Protein 7.4 (6.4-8.2) g/dL Albumin 3.8 (3.4-5.0) g/dL Globulin 3.6 (2.6-4.0) g/dL Albumin/Globulin Ratio 1.1 (0.9-1.6) Lipase 87 (73-393) U/L Urine Color Urine Appearance Urine pH (5.0-8.0) Ur Specific [place] (1.001-1.035) Urine Protein (NEGATIVE) mg/dL Urine Glucose (UA) (NEGATIVE) mg/dL Urine Ketones (NEGATIVE) mg/dL Urine Occult Blood (NEGATIVE) Urine Nitrite (NEGATIVE) Urine Bilirubin (NEGATIVE) Urine Urobilinogen (<2.0) EU/dL Ur Leukocyte Esterase (NEGATIVE) 11/01/19 Range/Units 20:25 WBC (4.0-11.0) K/uL RBC (4.30-5.90) M/uL Hgb (12.0-16.0) g/dL Hct (36.0-46.0) % MCV (80.0-98.0) fL MCH (27.0-32.0) pg MCHC (31.0-37.0) g/dL RDW Std Deviation (28.0-62.0) fl RDW Coeff of Aristides (11.0-15.0) % Plt Count (150-400) K/uL MPV (7.40-12.00) fL Neut % (Auto) (48.0-80.0) % Lymph % (Auto) (16.0-40.0) % [place] % (Auto) (0.0-15.0) % Eos % (Auto) (0.0-7.0) % Baso % (Auto) (0.0-1.5) % Neut # (Auto) (1.4-5.7) K/uL Lymph # (Auto) (0.6-2.4) K/uL [place] # (Auto) (0.0-0.8) K/uL Eos # (Auto) (0.0-0.7) K/uL Baso # (Auto) (0.0-0.1) K/uL Nucleated RBC % /100WBC Nucleated RBCs # K/uL Lactate (0.20-2.00) mmol/L Sodium (136-145) mmol/L Potassium (3.5-5.1) mmol/L Chloride (98-107) mmol/L Carbon Dioxide (21.0-32.0) mmol/L BUN (7.0-18.0) mg/dL Creatinine (0.6-1.0) mg/dL Est Cr Clr Drug Dosing mL/min Estimated GFR (MDRD) ml/min Glucose (74-106) mg/dL Calcium (8.5-10.1) mg/dL Total Bilirubin (0.2-1.0) mg/dL AST (15-37) IU/L ALT (14-63) IU/L Alkaline Phosphatase (46-116) U/L Total Protein (6.4-8.2) g/dL Albumin (3.4-5.0) g/dL Globulin (2.6-4.0) g/dL Albumin/Globulin Ratio (0.9-1.6) Lipase (73-393) U/L Urine Color YELLOW Urine Appearance CLEAR Urine pH 6.5 (5.0-8.0) Ur Specific [place] <= 1.005 (1.001-1.035) Urine Protein NEGATIVE (NEGATIVE) mg/dL Urine Glucose (UA) NEGATIVE (NEGATIVE) mg/dL Urine Ketones NEGATIVE (NEGATIVE) mg/dL Urine Occult Blood NEGATIVE (NEGATIVE) Urine Nitrite NEGATIVE (NEGATIVE) Urine Bilirubin NEGATIVE (NEGATIVE) Urine Urobilinogen 0.2 (<2.0) EU/dL Ur Leukocyte Esterase NEGATIVE (NEGATIVE) Result Diagrams: 11/01/19 18:23 11/01/19 18:23 Sepsis Event Note - Evaluation Sepsis Screening Result: No Definite Risk - Focused Exam Vital Signs: Vital Signs Temp Pulse Resp BP Pulse Ox 11/01/19 20:38 72 116/74 11/01/19 18:59 75 18 116/53 L 98 11/01/19 18:05 37.2 C 78 20 113/50 L 100 Date Exam was Performed: 11/01/19 Time Exam was Performed: 21:31 Consult PN Assessment/Plan Procedures: Procedures ASSAY THYROID STIM HORMONE (04/02/18) BLOOD TYPING SEROLOGIC ABO (05/27/18) BLOOD TYPING SEROLOGIC RH(D) (05/27/18) BREAST TOMOSYNTHESIS BI (02/11/19) CHEST X-RAY 2VW FRONTAL&LATL (12/23/16) CHORIONIC GONADOTROPIN ASSAY (05/27/18) COMP SCREEN MAMMOGRAM ADD-ON (10/13/16) COMPLETE CBC AUTOMATED (06/02/18) COMPLETE CBC W/AUTO DIFF WBC (05/27/18) CULTURE SCREEN ONLY (12/23/16) EMERGENCY DEPT VISIT (05/20/16) EMERGENCY DEPT VISIT (03/19/15) HEMATOCRIT (04/13/18) HEMOGLOBIN (04/13/18) HPV HIGH-RISK TYPES (10/06/16) KNEE ARTHROSCOPY/SURGERY (04/26/15) METABOLIC PANEL TOTAL CA (05/27/18) MRI JNT OF LWR EXTRE W/O DYE (03/28/15) PT EVALUATION (07/11/16) RBC ANTIBODY SCREEN (05/27/18) REMOVE KNEE CYST (04/26/15) REPAIR BLADDER DEFECT (05/27/18) ROUTINE VENIPUNCTURE (06/02/18) SCR MAMMO BI INCL CAD (02/11/19) STREP A ASSAY W/OPTIC (12/23/16) THER/PROPH/DIAG INJ SC/IM (05/20/16) THERAPEUTIC EXERCISES (07/18/16) TRANSVAGINAL US NON-OB (04/16/18) URINE TEST (04/26/15) VAG HYST INCLUDING T/O (05/27/18) X-RAY EXAM L-S SPINE 2/3 VWS (06/25/16) X-RAY EXAM OF KNEE 3 (06/05/17) X-RAY EXAM OF PELVIS (05/20/16) (1) Abdominal pain SNOMED Code(s): 17259670 Code(s): R10.9 - UNSPECIFIED ABDOMINAL PAIN Current Visit: Yes Qualifiers: Abdominal location: periumbilical Qualified Code(s): R10.33 - Periumbilical pain (2) Enteritis SNOMED Code(s): 32820387 Code(s): K52.9 - NONINFECTIVE GASTROENTERITIS AND COLITIS, UNSPECIFIED Current Visit: Yes (3) Leukocytosis SNOMED Code(s): 446507543, 902554700 Code(s): D72.829 - ELEVATED WHITE BLOOD CELL COUNT, UNSPECIFIED Current Visit: Yes Qualifiers: Leukocytosis type: unspecified Qualified Code(s): D72.829 - Elevated white blood cell count, unspecified Problem List Initiated/Reviewed/Updated: Yes My Orders Last 24 Hours: My Active Orders 12/17/19 21:26 HYDROmorphone [Dilaudid] 0.5 mg IVPUSH Q1H PRN 11/01/19 21:28 C DIFFICILE AG/TOXIN W/REFLEX [] Routine 11/01/19 21:29 CULTURE STOOL + CAMPY+SHIGATOX [] Routine 11/02/19 Breakfast NPO Now [Nothing per Oral Now Diet] [DIET] Plan: Patient does have abdominal discomfort as well as an elevated WBC. I agree with the radiology differential. I do not think she has a surgical abdomen at this time given my clinical and physical assessment. She is uncomfortable but not having guarding rigidity or rebound. She is still passing gas. I reviewed her CT scan and do not see overtly distended small bowel. I ordered an H pylori stool test, stool cultures, and C Diff. She should be made NPO other than ice chips and sips with meds. IVF resuscitation. Will start IV zosyn 6.625mg q 6hr. I wrote for 0.5mg of Dilaudid as needed for abdominal discomfort for tonight. Remainder of work up per medicine team. Would repeat labs in am. Will continue to follow along with patient.
[2019-11-01] MEDS: HYDROmorphone 1 MG/ML Syringe IVPUSH PRN ×2 (21:46→23:36)
[2019-11-01] MEDS ORDERED: Albuterol/Ipratropium 3.0-0.5 MG/3 ML Neb Soln NEB PRN (22:00)
[2019-11-01] MEDS ORDERED: Ondansetron 4 MG/2 ML SDV IVPUSH PRN (22:00)
--- NOTE | 2019-11-01 22:10 | PCM.HP.2 ---
H&P History of Present Illness - General Date of Service: 11/01/19 Admit Problem/Dx: Admission Diagnosis/Problem Admission Diagnosis/Problem Abdominal pain - History of Present Illness Initial Comments - Free Text/Narative: Patient is a 44 year old female with PMH of anxiety, laparotomy with ovarian cystectomy, who presents to the ER with c/o abdominal pain. Per patient she had some diarrhea yesterday followed by abdominal pain that started this morning around 2 am,and hasn't improved much since. Also endorsed feeling chills and subjective fevers. In the ER her vitals were stable, her lab work revealed leucocytosis of 15k with left shift. Ct scan of abdomen was done which reported left adenexal cyst as well as a possible short segment of luminal narrowing in a lower abdominal small bowel segment with no evidence of dilation. The findings "could represent enteritis or mild ileus or early or partial obstruction." Surgery was consulted, recommended conservative management with IVF. Patient is being admitted for management of possible enteritis. Denied chest pain, sob, palpitations, cough, constipation, bloody stools, bloody urine , urinary symptoms. Duration of Symptoms: Reports: Hour(s): Quality: Reports: Ache Improves with: Reports: None Worsens with: Reports: None Context: Reports: Sick Contact Associated Symptoms: Reports: Fever/Chills, Loss of Appetite, Malaise. Denies: Confusion, Chest Pain, Cough right lower abd Pain Score (Numeric/FACES): 10 - Related Data Allergies/Adverse Reactions: Allergies Allergy/AdvReac Type Severity Reaction Status Date / Time No Known Allergies Allergy Verified 11/01/19 22:47 Home Medications: Home Meds Ibuprofen [Motrin] 400 - 600 mg PO Q6H PRN 05/24/18 [History] Melatonin 3 mg PO BEDTIME PRN 05/24/18 [History] FLUoxetine HCl [Fluoxetine HCl] 20 mg PO DAILY 11/01/19 [History] busPIRone HCl [Buspirone HCl] 15 mg PO DAILY 11/01/19 [History] Ciprofloxacin [Ciprofloxacin HCl] 500 mg PO TID 5 Days #15 tab 11/04/19 [Rx] Folic Acid 1 mg PO DAILY tablet 11/04/19 [Rx] Past Medical History - Past Health History Medical/Surgical History: Denies Medical/Surgical History HEENT History: Reports: Other (See Below) Other HEENT History: wears glasses/contacts Cardiovascular History: Reports: Other (See Below) Other Cardiovascular History: varicose veins 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: Musculoskeletal History: Reports: Back Pain, Chronic, Fracture Other Musculoskeletal History: hx fx foot Neurological History: Reports: None, Other (See Below) (h/o migrains, no more) Psychiatric History: Reports: Anxiety Endocrine/Metabolic History: Reports: None Hematologic History: Reports: Anemia Immunologic History: Reports: None Oncologic (Cancer) History: Reports: None Dermatologic History: Reports: None - Past Surgical History Head Surgeries/Procedures: Reports: None Female Surgical History: Reports: Breast Implant, Cystectomy, Other (See Below) Other Female Surgeries/Procedures: breast augmentation, laparotomy with ovarian cystectomy Musculoskeletal Surgical History: Reports: Arthroscopic Knee, Other (See Below) Other Musculoskeletal Surgeries/Procedures:: Right knee meniscectomy and cyst removed Social & Family History - Family History Family Medical History: Noncontributory - Tobacco Use Smoking Status *Q: Current Every Day Smoker Years of Tobacco use: 25 Packs/Tins Daily: 0.5 - Recreational Drug Use Recreational Drug Use: No H&P Review of Systems - Review of Systems: Review Of Systems: See Below General: Reports: Chills, Malaise, Weakness, Fatigue, Decreased Appetite HEENT: Denies: Dysphasia, Ear Pain, Headaches, Sinus Congestion Pulmonary: Denies: Shortness of Breath, Wheezing, Pleuritic Chest Pain Cardiovascular: Denies: Chest Pain, Palpitations, Dyspnea on Exertion Gastrointestinal: Reports: Abdominal Pain, Diarrhea, Decreased Appetite, Flatus , Nausea. Denies: Black Stool, Bloody Stool, Constipation, Difficulty Swallowing, Hematemesis, Hematochezia, Melena Genitourinary: Denies: Frequency, Burning Musculoskeletal: Denies: Neck Pain, Shoulder Pain Skin: Denies: Cyanosis, Jaundice, Mottled Psychiatric: Reports: Anxiety. Denies: Confusion, Depression Exam - Exam Exam: See Below - Vital Signs Vital Signs: Last Vital Signs Temp 37.2 C 11/01/19 18:05 Pulse 72 11/01/19 20:38 Resp 18 11/01/19 18:59 BP 116/74 11/01/19 20:38 Pulse Ox 98 11/01/19 18:59 Weight: 58.967 kg - Exam General: Alert, Oriented Neck: Supple, Trachea Midline Lungs: Clear to Auscultation, Normal Respiratory Effort Cardiovascular: Regular Rate, Regular Rhythm GI/Abdominal Exam: Soft, Distended, Tender. No: Non-Tender, No Distention Extremities: Normal Inspection Peripheral Pulses: 3+: Dorsalis Pedis (L), Dorsalis Pedis (R) Skin: Warm, Intact - Patient Data Lab Results Last 24 hrs: Laboratory Results - last 24 hr 11/01/19 11/01/19 11/01/19 Range/Units 18:23 18:23 18:23 WBC 15.39 H (4.0-11.0) K/uL RBC 4.22 L (4.30-5.90) M/uL Hgb 14.3 (12.0-16.0) g/dL Hct 41.8 (36.0-46.0) % MCV 99.1 H (80.0-98.0) fL MCH 33.9 H (27.0-32.0) pg MCHC 34.2 (31.0-37.0) g/dL RDW Std Deviation 49.4 (28.0-62.0) fl RDW Coeff of Aristides 14 (11.0-15.0) % Plt Count 191 (150-400) K/uL MPV 10.90 (7.40-12.00) fL Neut % (Auto) 84.0 H (48.0-80.0) % Lymph % (Auto) 10.6 L (16.0-40.0) % [place] % (Auto) 4.7 (0.0-15.0) % Eos % (Auto) 0.6 (0.0-7.0) % Baso % (Auto) 0.1 (0.0-1.5) % Neut # (Auto) 12.9 H (1.4-5.7) K/uL Lymph # (Auto) 1.6 (0.6-2.4) K/uL [place] # (Auto) 0.7 (0.0-0.8) K/uL Eos # (Auto) 0.1 (0.0-0.7) K/uL Baso # (Auto) 0.0 (0.0-0.1) K/uL Nucleated RBC % 0.0 /100WBC Nucleated RBCs # 0 K/uL Lactate 1.1 (0.20-2.00) mmol/L Sodium 138 (136-145) mmol/L Potassium 3.5 (3.5-5.1) mmol/L Chloride 101 (98-107) mmol/L Carbon Dioxide 25.3 (21.0-32.0) mmol/L BUN 10 (7.0-18.0) mg/dL Creatinine 0.8 (0.6-1.0) mg/dL Est Cr Clr Drug Dosing 71.71 mL/min Estimated GFR (MDRD) > 60.0 ml/min Glucose 115 H (74-106) mg/dL Calcium 9.1 (8.5-10.1) mg/dL Total Bilirubin 0.5 (0.2-1.0) mg/dL AST 28 (15-37) IU/L ALT 33 (14-63) IU/L Alkaline Phosphatase 90 (46-116) U/L Total Protein 7.4 (6.4-8.2) g/dL Albumin 3.8 (3.4-5.0) g/dL Globulin 3.6 (2.6-4.0) g/dL Albumin/Globulin Ratio 1.1 (0.9-1.6) Lipase 87 (73-393) U/L Urine Color Urine Appearance Urine pH (5.0-8.0) Ur Specific [place] (1.001-1.035) Urine Protein (NEGATIVE) mg/dL Urine Glucose (UA) (NEGATIVE) mg/dL Urine Ketones (NEGATIVE) mg/dL Urine Occult Blood (NEGATIVE) Urine Nitrite (NEGATIVE) Urine Bilirubin (NEGATIVE) Urine Urobilinogen (<2.0) EU/dL Ur Leukocyte Esterase (NEGATIVE) 11/01/19 Range/Units 20:25 WBC (4.0-11.0) K/uL RBC (4.30-5.90) M/uL Hgb (12.0-16.0) g/dL Hct (36.0-46.0) % MCV (80.0-98.0) fL MCH (27.0-32.0) pg MCHC (31.0-37.0) g/dL RDW Std Deviation (28.0-62.0) fl RDW Coeff of [place] (11.0-15.0) % Plt Count (150-400) K/uL MPV (7.40-12.00) fL Neut % (Auto) (48.0-80.0) % Lymph % (Auto) (16.0-40.0) % [place] % (Auto) (0.0-15.0) % Eos % (Auto) (0.0-7.0) % Baso % (Auto) (0.0-1.5) % Neut # (Auto) (1.4-5.7) K/uL Lymph # (Auto) (0.6-2.4) K/uL [place] # (Auto) (0.0-0.8) K/uL Eos # (Auto) (0.0-0.7) K/uL Baso # (Auto) (0.0-0.1) K/uL Nucleated RBC % /100WBC Nucleated RBCs # K/uL Lactate (0.20-2.00) mmol/L Sodium (136-145) mmol/L Potassium (3.5-5.1) mmol/L Chloride (98-107) mmol/L Carbon Dioxide (21.0-32.0) mmol/L BUN (7.0-18.0) mg/dL Creatinine (0.6-1.0) mg/dL Est Cr Clr Drug Dosing mL/min Estimated GFR (MDRD) ml/min Glucose (74-106) mg/dL Calcium (8.5-10.1) mg/dL Total Bilirubin (0.2-1.0) mg/dL AST (15-37) IU/L ALT (14-63) IU/L Alkaline Phosphatase (46-116) U/L Total Protein (6.4-8.2) g/dL Albumin (3.4-5.0) g/dL Globulin (2.6-4.0) g/dL Albumin/Globulin Ratio (0.9-1.6) Lipase (73-393) U/L Urine Color YELLOW Urine Appearance CLEAR Urine pH 6.5 (5.0-8.0) Ur Specific [place] <= 1.005 (1.001-1.035) Urine Protein NEGATIVE (NEGATIVE) mg/dL Urine Glucose (UA) NEGATIVE (NEGATIVE) mg/dL Urine Ketones NEGATIVE (NEGATIVE) mg/dL Urine Occult Blood NEGATIVE (NEGATIVE) Urine Nitrite NEGATIVE (NEGATIVE) Urine Bilirubin NEGATIVE (NEGATIVE) Urine Urobilinogen 0.2 (<2.0) EU/dL Ur Leukocyte Esterase NEGATIVE (NEGATIVE) Result Diagrams: 11/04/19 05:26 11/04/19 05:26 Sepsis Event Note - Evaluation Sepsis Screening Result: No Definite Risk - Focused Exam Vital Signs: Vital Signs Temp Pulse Resp BP Pulse Ox 11/01/19 20:38 72 116/74 11/01/19 18:59 75 18 116/53 L 98 11/01/19 18:05 37.2 C 78 20 113/50 L 100 Date Exam was Performed: 11/05/19 Time Exam was Performed: 11:38 *Q Meaningful Use (ADM) - VTE Risk Assess *Q Each Risk Factor Represents 1 Point: Age 41 - 59 years Total Score 1 Point Risk Factors: 1 - Problem List (1) Enteritis SNOMED Code(s): 77851471 ICD Code: K52.9 - NONINFECTIVE GASTROENTERITIS AND COLITIS, UNSPECIFIED Status: Acute (2) Leukocytosis SNOMED Code(s): 881515450, 266553498 ICD Code: D72.829 - ELEVATED WHITE BLOOD CELL COUNT, UNSPECIFIED Status: Acute Qualifiers: Leukocytosis type: unspecified Qualified Code(s): D72.829 - Elevated white blood cell count, unspecified Problem List Initiated/Reviewed/Updated: Yes Orders Last 24hrs: Active Orders 24 hr Category Date Time Status Patient Status [ADT] Stat ADT 11/01/19 20:58 Active Ambulate [RC] ASDIRECTED Care 11/01/19 22:00 Ordered Antiembolic Devices [RC] PER UNIT ROUTINE Care 11/01/19 22:03 Ordered Notify Provider Consults [RC] ASDIRECTED Care 11/01/19 20:52 Active Oxygen Therapy [RC] PRN Care 11/01/19 22:00 Ordered RT Aerosol Therapy [RC] ASDIRECTED Care 11/01/19 22:04 Ordered VTE/DVT Education [RC] PER UNIT ROUTINE Care 11/01/19 22:00 Ordered Vital Signs [RC] Q4H Care 11/01/19 22:00 Ordered Consult to Physician [CONS] Stat Cons 11/01/19 20:52 Active NPO Now [Nothing per Oral Now Diet] [DIET] Diet 11/02/19 Breakfast Active C DIFFICILE AG/TOXIN W/REFLEX [RM] Routine Lab 11/01/19 21:28 Ordered CULTURE BLOOD [BC] Stat Lab 11/01/19 18:23 Received CULTURE BLOOD [BC] Stat Lab 11/01/19 18:34 Received CULTURE STOOL + CAMPY+SHIGATOX [RM] Routine Lab 11/01/19 21:29 Ordered Albuterol/Ipratropium [DuoNeb 3.0-0.5 MG/3 ML] Med 11/01/19 22:00 Ordered 3 ml NEB Q4HRRT PRN Ciprofloxacin in D5W [Cipro in D5W 400 MG/200 ML] 400 Med 11/01/19 22:15 Ordered mg Premix Bag 1 bag IV Q12H HYDROmorphone [Dilaudid] Med 11/01/19 21:26 Active 0.5 mg IVPUSH Q1H PRN Ondansetron [Zofran] Med 11/01/19 22:00 Ordered 4 mg IVPUSH Q4H PRN Piperacillin/Tazobactam [Piperacil-Tazobact] 3.375 gm Med 11/01/19 22:00 Active Sodium Chloride 0.9% [Normal Saline] 50 ml IV Q6H Sodium Chloride 0.9% [Normal Saline] 1,000 ml Med 11/01/19 20:30 Active IV ASDIRECTED metroNIDAZOLE/Normal Saline [Flagyl 500 MG in NS 100 ML Med 11/01/19 22:15 Ordered ] 500 mg Premix Bag 1 bag IV Q8H Blood Culture x2 Reflex Set [OM.PC] Stat Oth 11/01/19 18:13 Ordered Sequential Compression Device [OM.PC] Per Unit Routine Oth 11/01/19 22:02 Ordered Resuscitation Status Routine Resus Stat 11/01/19 22:00 Ordered Medication Orders Albuterol/Ipratropium (Duoneb 3.0-0.5 Mg/3 Ml) 3 ml NEB Q4HRRT PRN PRN Reason: Shortness Of Breath/wheezing Hydromorphone HCl (Dilaudid) 0.5 mg IVPUSH Q1H PRN PRN Reason: Pain Last Admin: 11/01/19 21:46 Dose: 0.5 mg Sodium Chloride (Normal Saline) 1,000 mls @ 150 mls/hr IV ASDIRECTED MARJORIE Last Admin: 11/01/19 20:36 Dose: 150 mls/hr Piperacillin Sod/Tazobactam (Sod 3.375 gm/ Sodium Chloride) 50 mls @ 100 mls/ hr IV Q6H [facility] Ondansetron HCl (Zofran) 4 mg IVPUSH Q4H PRN PRN Reason: Nausea/Vomiting Assessment/Plan Comment:: 44 y/o F comes in for evaluation of abdominal pain, CT abdomen shows possible enteritis vs ileus vs partial obstruction Had diarrhea yesterday, continues to pass flatus Will keep NPO with ice-chips for now for bowel rest Will continue IV antibiotics for possible enteritis Cont IVF resuscitation Pain control with Dilaudid Zofran for Nausea f/u on stool studies and blood cultures Surgery on board, appreciate recommendations Continue to monitor vitals closely Monitor and replete electrolytes as needed
[2019-11-01] MEDS ORDERED: Ciprofloxacin in D5W 400 MG in Premix Bag 1 BAG IV SCH ×2 (22:15)
[2019-11-01] MEDS ORDERED: metroNIDAZOLE/Normal Saline 500 MG in Premix Bag 1 BAG IV SCH (22:15)
[2019-11-01] MEDS: Piperacillin/Tazobactam 3.375 GM in Sodium Chloride 0.9% 50 ML IV SCH (22:34)
[2019-11-02] MEDS: Promethazine 25 MG/ML SDV IM PRN ×4 (00:58→20:10)
[2019-11-02] MEDS: HYDROmorphone 1 MG/ML Syringe IVPUSH PRN ×6 (01:32→20:13)
[2019-11-02] MEDS: Sodium Chloride 0.9% 1,000 ML IV SCH ×3 (03:25→19:08)
[2019-11-02] MEDS: Piperacillin/Tazobactam 3.375 GM in Sodium Chloride 0.9% 50 ML IV SCH ×4 (04:23→21:52)
[2019-11-02 06:39] LABS: BLOOD UREA NITROGEN,BUN 9 mg/dL (7.0-18.0); CHLORIDE,CL 106 mmol/L (98-107); GLUCOSE RANDOM 108 mg/dL (74-106); POTASSIUM,K 3.5 mmol/L (3.5-5.1); SODIUM,NA 140 mmol/L (136-145)
--- NOTE | 2019-11-02 09:50 | PCM.CONSN ---
- General Info Date of Service: 11/02/19 Functional Status: Reports: Other (Patient continuing to have crampy pain in her lower abdomen. She was able to rest this morning and was sleeping when I came in. Still passing flatus. VSS overnight. No vomiting. ) - Review of Systems General: Reports: No Symptoms HEENT: Reports: No Symptoms Pulmonary: Reports: No Symptoms Cardiovascular: Reports: No Symptoms Gastrointestinal: Reports: Abdominal Pain - Patient Data Vitals - Most Recent: Last Vital Signs Temp 36.3 C 11/02/19 07:15 Pulse 61 11/02/19 07:15 Resp 18 11/02/19 07:15 BP 122/63 11/02/19 07:59 Pulse Ox 93 L 11/02/19 07:15 Weight - Most Recent: 61.3 kg I&O - Last 24 Hours: Intake & Output 11/01/19 11/02/19 11/02/19 22:59 06:59 14:59 Intake Total 1120 Output Total 300 Balance 820 Lab Results Last 24 Hours: Laboratory Results - last 24 hr 11/01/19 11/01/19 11/01/19 Range/Units 18:23 18:23 18:23 WBC 15.39 H (4.0-11.0) K/uL RBC 4.22 L (4.30-5.90) M/uL Hgb 14.3 (12.0-16.0) g/dL Hct 41.8 (36.0-46.0) % MCV 99.1 H (80.0-98.0) fL MCH 33.9 H (27.0-32.0) pg MCHC 34.2 (31.0-37.0) g/dL RDW Std Deviation 49.4 (28.0-62.0) fl RDW Coeff of Aristides 14 (11.0-15.0) % Plt Count 191 (150-400) K/uL MPV 10.90 (7.40-12.00) fL Neut % (Auto) 84.0 H (48.0-80.0) % Lymph % (Auto) 10.6 L (16.0-40.0) % [place] % (Auto) 4.7 (0.0-15.0) % Eos % (Auto) 0.6 (0.0-7.0) % Baso % (Auto) 0.1 (0.0-1.5) % Neut # (Auto) 12.9 H (1.4-5.7) K/uL Lymph # (Auto) 1.6 (0.6-2.4) K/uL [place] # (Auto) 0.7 (0.0-0.8) K/uL Eos # (Auto) 0.1 (0.0-0.7) K/uL Baso # (Auto) 0.0 (0.0-0.1) K/uL Nucleated RBC % 0.0 /100WBC Nucleated RBCs # 0 K/uL Lactate 1.1 (0.20-2.00) mmol/L Sodium 138 (136-145) mmol/L Potassium 3.5 (3.5-5.1) mmol/L Chloride 101 (98-107) mmol/L Carbon Dioxide 25.3 (21.0-32.0) mmol/L BUN 10 (7.0-18.0) mg/dL Creatinine 0.8 (0.6-1.0) mg/dL Est Cr Clr Drug Dosing 71.71 mL/min Estimated GFR (MDRD) > 60.0 ml/min Glucose 115 H (74-106) mg/dL Calcium 9.1 (8.5-10.1) mg/dL Phosphorus (2.6-4.7) mg/dL Magnesium (1.8-2.4) mg/dL Total Bilirubin 0.5 (0.2-1.0) mg/dL AST 28 (15-37) IU/L ALT 33 (14-63) IU/L Alkaline Phosphatase 90 (46-116) U/L Total Protein 7.4 (6.4-8.2) g/dL Albumin 3.8 (3.4-5.0) g/dL Globulin 3.6 (2.6-4.0) g/dL Albumin/Globulin Ratio 1.1 (0.9-1.6) Lipase 87 (73-393) U/L Urine Color Urine Appearance Urine pH (5.0-8.0) Ur Specific [place] (1.001-1.035) Urine Protein (NEGATIVE) mg/dL Urine Glucose (UA) (NEGATIVE) mg/dL Urine Ketones (NEGATIVE) mg/dL Urine Occult Blood (NEGATIVE) Urine Nitrite (NEGATIVE) Urine Bilirubin (NEGATIVE) Urine Urobilinogen (<2.0) EU/dL Ur Leukocyte Esterase (NEGATIVE) 11/01/19 11/02/19 11/02/19 Range/Units 20:25 05:13 05:13 WBC 9.19 (4.0-11.0) K/uL RBC 3.41 L (4.30-5.90) M/uL Hgb 11.2 L (12.0-16.0) g/dL Hct 34.6 L (36.0-46.0) % MCV 101.5 H (80.0-98.0) fL MCH 32.8 H (27.0-32.0) pg MCHC 32.4 (31.0-37.0) g/dL RDW Std Deviation 52.2 (28.0-62.0) fl RDW Coeff of Aristides 14 (11.0-15.0) % Plt Count 168 (150-400) K/uL MPV 11.20 (7.40-12.00) fL Neut % (Auto) 79.7 (48.0-80.0) % Lymph % (Auto) 13.1 L (16.0-40.0) % [place] % (Auto) 6.2 (0.0-15.0) % Eos % (Auto) 0.9 (0.0-7.0) % Baso % (Auto) 0.1 (0.0-1.5) % Neut # (Auto) 7.3 H (1.4-5.7) K/uL Lymph # (Auto) 1.2 (0.6-2.4) K/uL [place] # (Auto) 0.6 (0.0-0.8) K/uL Eos # (Auto) 0.1 (0.0-0.7) K/uL Baso # (Auto) 0.0 (0.0-0.1) K/uL Nucleated RBC % 0.0 /100WBC Nucleated RBCs # 0 K/uL Lactate (0.20-2.00) mmol/L Sodium 140 (136-145) mmol/L Potassium 3.5 (3.5-5.1) mmol/L Chloride 106 (98-107) mmol/L Carbon Dioxide 27.0 (21.0-32.0) mmol/L BUN 9 (7.0-18.0) mg/dL Creatinine 0.6 (0.6-1.0) mg/dL Est Cr Clr Drug Dosing 95.62 mL/min Estimated GFR (MDRD) > 60.0 ml/min Glucose 108 H (74-106) mg/dL Calcium 7.7 L (8.5-10.1) mg/dL Phosphorus 3.9 (2.6-4.7) mg/dL Magnesium 1.9 (1.8-2.4) mg/dL Total Bilirubin (0.2-1.0) mg/dL AST (15-37) IU/L ALT (14-63) IU/L Alkaline Phosphatase (46-116) U/L Total Protein (6.4-8.2) g/dL Albumin (3.4-5.0) g/dL Globulin (2.6-4.0) g/dL Albumin/Globulin Ratio (0.9-1.6) Lipase (73-393) U/L Urine Color YELLOW Urine Appearance CLEAR Urine pH 6.5 (5.0-8.0) Ur Specific [place] <= 1.005 (1.001-1.035) Urine Protein NEGATIVE (NEGATIVE) mg/dL Urine Glucose (UA) NEGATIVE (NEGATIVE) mg/dL Urine Ketones NEGATIVE (NEGATIVE) mg/dL Urine Occult Blood NEGATIVE (NEGATIVE) Urine Nitrite NEGATIVE (NEGATIVE) Urine Bilirubin NEGATIVE (NEGATIVE) Urine Urobilinogen 0.2 (<2.0) EU/dL Ur Leukocyte Esterase NEGATIVE (NEGATIVE) Med Orders - Current: Current Medications Albuterol/Ipratropium (Duoneb 3.0-0.5 Mg/3 Ml) 3 ml NEB Q4HRRT PRN PRN Reason: Shortness Of Breath/wheezing Hydromorphone HCl (Dilaudid) 0.5 mg IVPUSH Q1H PRN PRN Reason: Pain Last Admin: 11/02/19 08:00 Dose: 0.5 mg Sodium Chloride (Normal Saline) 1,000 mls @ 150 mls/hr IV ASDIRECTED MARJORIE Last Admin: 11/02/19 03:25 Dose: 150 mls/hr Piperacillin Sod/Tazobactam (Sod 3.375 gm/ Sodium Chloride) 50 mls @ 100 mls/ hr IV Q6H MARJORIE Last Admin: 11/02/19 04:23 Dose: 100 mls/hr Promethazine HCl (Phenergan) 12.5 mg IM Q4H PRN PRN Reason: Nausea/Vomiting Last Admin: 11/02/19 05:18 Dose: 12.5 mg Discontinued Medications Sodium Chloride (Normal Saline) 1,000 mls @ 999 mls/hr IV STAT ONE Stop: 11/01/19 19:04 Last Admin: 11/01/19 18:27 Dose: 999 mls/hr Ciprofloxacin/Dextrose 400 mg/ (Premix) 200 mls @ 200 mls/hr IV Q12H [facility]IE Metronidazole 500 mg/ Premix 100 mls @ 100 mls/hr IV Q8H [facility]IE Iopamidol (Isovue Multipack-370 (76%)) 100 ml IVPUSH ONETIME ONE Stop: 11/01/19 20:59 Last Admin: 11/01/19 21:02 Dose: 100 ml Ketorolac Tromethamine (Toradol) 30 mg IVPUSH ONETIME ONE Stop: 11/01/19 18:05 Last Admin: 11/01/19 18:27 Dose: 30 mg Morphine Sulfate (Morphine) 2 mg IVPUSH ONETIME ONE Stop: 11/01/19 18:56 Last Admin: 11/01/19 18:57 Dose: 2 mg Morphine Sulfate (Morphine) Confirm Administered Dose 2 mg .ROUTE .STK-MED ONE Stop: 11/01/19 18:55 Last Admin: 11/01/19 19:00 Dose: Not Given Ondansetron HCl (Zofran) 8 mg IVPUSH ONETIME ONE Stop: 11/01/19 18:05 Last Admin: 11/01/19 18:27 Dose: 8 mg Ondansetron HCl (Zofran) 4 mg IVPUSH Q4H PRN PRN Reason: Nausea/Vomiting - Exam General: Alert, Mild Distress HEENT: Pupils Equal, Pupils Reactive Lungs: Normal Respiratory Effort Cardiovascular: Regular Rate GI/Abdominal Exam: Soft, Other (Abdominal distension and tenderness have improved. Still some lower abdominal discomfort with palpation. ) Back Exam: Normal Inspection Sepsis Event Note - Evaluation Sepsis Screening Result: No Definite Risk - Focused Exam Vital Signs: Vital Signs Temp Pulse Resp BP Pulse Ox Pulse Ox 11/02/19 07:59 122/63 11/02/19 07:15 36.3 C 61 18 95/51 L 93 L 11/02/19 04:00 36.2 C 65 16 114/66 95 11/01/19 22:52 95 11/01/19 22:28 35.9 C 64 17 117/73 95 Date Exam was Performed: 11/02/19 Time Exam was Performed: 09:44 Consult PN Assessment/Plan Procedures: Procedures ASSAY THYROID STIM HORMONE (04/02/18) BLOOD TYPING SEROLOGIC ABO (05/27/18) BLOOD TYPING SEROLOGIC RH(D) (05/27/18) BREAST TOMOSYNTHESIS BI (02/11/19) CHEST X-RAY 2VW FRONTAL&LATL (12/23/16) CHORIONIC GONADOTROPIN ASSAY (05/27/18) COMP SCREEN MAMMOGRAM ADD-ON (10/13/16) COMPLETE CBC AUTOMATED (06/02/18) COMPLETE CBC W/AUTO DIFF WBC (05/27/18) CULTURE SCREEN ONLY (12/23/16) EMERGENCY DEPT VISIT (05/20/16) EMERGENCY DEPT VISIT (03/19/15) HEMATOCRIT (04/13/18) HEMOGLOBIN (04/13/18) HPV HIGH-RISK TYPES (10/06/16) KNEE ARTHROSCOPY/SURGERY (04/26/15) METABOLIC PANEL TOTAL CA (05/27/18) MRI JNT OF LWR EXTRE W/O DYE (03/28/15) PT EVALUATION (07/11/16) RBC ANTIBODY SCREEN (05/27/18) REMOVE KNEE CYST (04/26/15) REPAIR BLADDER DEFECT (05/27/18) ROUTINE VENIPUNCTURE (06/02/18) SCR MAMMO BI INCL CAD (02/11/19) STREP A ASSAY W/OPTIC (12/23/16) THER/PROPH/DIAG INJ SC/IM (05/20/16) THERAPEUTIC EXERCISES (07/18/16) TRANSVAGINAL US NON-OB (04/16/18) URINE TEST (04/26/15) VAG HYST INCLUDING T/O (05/27/18) X-RAY EXAM L-S SPINE 2/3 VWS (06/25/16) X-RAY EXAM OF KNEE 3 (06/05/17) X-RAY EXAM OF PELVIS (05/20/16) (1) Abdominal pain SNOMED Code(s): 21942997 Code(s): R10.9 - UNSPECIFIED ABDOMINAL PAIN Current Visit: Yes Qualifiers: Abdominal location: periumbilical Qualified Code(s): R10.33 - Periumbilical pain (2) Enteritis SNOMED Code(s): 74462803 Code(s): K52.9 - NONINFECTIVE GASTROENTERITIS AND COLITIS, UNSPECIFIED Current Visit: Yes (3) Leukocytosis SNOMED Code(s): 028636549, 264808961 Code(s): D72.829 - ELEVATED WHITE BLOOD CELL COUNT, UNSPECIFIED Current Visit: Yes Qualifiers: Leukocytosis type: unspecified Qualified Code(s): D72.829 - Elevated white blood cell count, unspecified Problem List Initiated/Reviewed/Updated: Yes My Orders Last 24 Hours: My Active Orders 11/01/19 21:26 HYDROmorphone [Dilaudid] 0.5 mg IVPUSH Q1H PRN 11/01/19 21:28 C DIFFICILE AG/TOXIN W/REFLEX [] Routine 11/01/19 21:29 CULTURE STOOL + CAMPY+SHIGATOX [] Routine 11/01/19 22:00 Piperacillin/Tazobactam [Piperacil-Tazobact] 3.375 gm Sodium Chloride 0.9% [ Normal Saline] 50 ml IV Q6H 11/02/19 Breakfast NPO Now [Nothing per Oral Now Diet] [DIET] Plan: I reviewed her CT again this morning and her new labs. Again I see no signs of bowel obstruction, but she has fluid filled loops of bowel in the lower abdomen. WBC has improved to 9K with a decrease in her left shift. She still is uncomfortable but her physical exam has improved. Would continue with bowel rest for now (ok to have ice chips and sips with meds). Continue zosyn. Will continue to perform abdominal exams. If her pain improves, could advance diet to clears this afternoon. Suspect patient has an infectious cause. Collect stool for cultures if she has a BM. If ongoing pain throughout the day, may do small bowel follow through tomorrow morning.
--- NOTE | 2019-11-02 14:08 | PCM.PN ---
<Cheryl Monroe - Last Filed: 11/02/19 14:03> - General Info Date of Service: 11/02/19 Subjective Update: 44-year-old female admitted for sudden onset lower abdominal pain and discomfort with cramping sensation: CT abdomen not conclusive for etiology however concerns for enteritis versus ileus. Bedside: Patient endorses interval improvement of her pain but is still not endorsing any appetite; states she feels tired and would like to rest. Patient has no other concerns at this time. - Review of Systems General: Denies: Fever, Weakness, Fatigue HEENT: Reports: No Symptoms Pulmonary: Reports: No Symptoms Cardiovascular: Reports: No Symptoms Gastrointestinal: Reports: Abdominal Pain, Flatus, Nausea. Denies: Constipation , Diarrhea, Vomiting Genitourinary: Denies: Dysuria, Frequency, Burning Musculoskeletal: Denies: Back Pain Neurological: Denies: Headache - Patient Data Vitals - Most Recent: Last Vital Signs Temp 97.4 F 11/02/19 07:15 Pulse 61 11/02/19 07:15 Resp 18 11/02/19 07:15 BP 122/63 11/02/19 07:59 Pulse Ox 93 L 11/02/19 07:15 Weight - Most Recent: 61.3 kg I&O - Last 24 Hours: Intake & Output 11/01/19 11/02/19 11/02/19 22:59 06:59 14:59 Intake Total 1120 50 Output Total 300 Balance 820 50 Lab Results Last 24 Hours: Laboratory Results - last 24 hr 11/01/19 11/01/19 11/01/19 Range/Units 18:23 18:23 18:23 WBC 15.39 H (4.0-11.0) K/uL RBC 4.22 L (4.30-5.90) M/uL Hgb 14.3 (12.0-16.0) g/dL Hct 41.8 (36.0-46.0) % MCV 99.1 H (80.0-98.0) fL MCH 33.9 H (27.0-32.0) pg MCHC 34.2 (31.0-37.0) g/dL RDW Std Deviation 49.4 (28.0-62.0) fl RDW Coeff of Aristides 14 (11.0-15.0) % Plt Count 191 (150-400) K/uL MPV 10.90 (7.40-12.00) fL Neut % (Auto) 84.0 H (48.0-80.0) % Lymph % (Auto) 10.6 L (16.0-40.0) % [place] % (Auto) 4.7 (0.0-15.0) % Eos % (Auto) 0.6 (0.0-7.0) % Baso % (Auto) 0.1 (0.0-1.5) % Neut # (Auto) 12.9 H (1.4-5.7) K/uL Lymph # (Auto) 1.6 (0.6-2.4) K/uL [place] # (Auto) 0.7 (0.0-0.8) K/uL Eos # (Auto) 0.1 (0.0-0.7) K/uL Baso # (Auto) 0.0 (0.0-0.1) K/uL Nucleated RBC % 0.0 /100WBC Nucleated RBCs # 0 K/uL Lactate 1.1 (0.20-2.00) mmol/L Sodium 138 (136-145) mmol/L Potassium 3.5 (3.5-5.1) mmol/L Chloride 101 (98-107) mmol/L Carbon Dioxide 25.3 (21.0-32.0) mmol/L BUN 10 (7.0-18.0) mg/dL Creatinine 0.8 (0.6-1.0) mg/dL Est Cr Clr Drug Dosing 71.71 mL/min Estimated GFR (MDRD) > 60.0 ml/min Glucose 115 H (74-106) mg/dL Calcium 9.1 (8.5-10.1) mg/dL Phosphorus (2.6-4.7) mg/dL Magnesium (1.8-2.4) mg/dL Total Bilirubin 0.5 (0.2-1.0) mg/dL AST 28 (15-37) IU/L ALT 33 (14-63) IU/L Alkaline Phosphatase 90 (46-116) U/L Total Protein 7.4 (6.4-8.2) g/dL Albumin 3.8 (3.4-5.0) g/dL Globulin 3.6 (2.6-4.0) g/dL Albumin/Globulin Ratio 1.1 (0.9-1.6) Lipase 87 (73-393) U/L Urine Color Urine Appearance Urine pH (5.0-8.0) Ur Specific [place] (1.001-1.035) Urine Protein (NEGATIVE) mg/dL Urine Glucose (UA) (NEGATIVE) mg/dL Urine Ketones (NEGATIVE) mg/dL Urine Occult Blood (NEGATIVE) Urine Nitrite (NEGATIVE) Urine Bilirubin (NEGATIVE) Urine Urobilinogen (<2.0) EU/dL Ur Leukocyte Esterase (NEGATIVE) 11/01/19 11/02/19 11/02/19 Range/Units 20:25 05:13 05:13 WBC 9.19 (4.0-11.0) K/uL RBC 3.41 L (4.30-5.90) M/uL Hgb 11.2 L (12.0-16.0) g/dL Hct 34.6 L (36.0-46.0) % MCV 101.5 H (80.0-98.0) fL MCH 32.8 H (27.0-32.0) pg MCHC 32.4 (31.0-37.0) g/dL RDW Std Deviation 52.2 (28.0-62.0) fl RDW Coeff of Aristides 14 (11.0-15.0) % Plt Count 168 (150-400) K/uL MPV 11.20 (7.40-12.00) fL Neut % (Auto) 79.7 (48.0-80.0) % Lymph % (Auto) 13.1 L (16.0-40.0) % [place] % (Auto) 6.2 (0.0-15.0) % Eos % (Auto) 0.9 (0.0-7.0) % Baso % (Auto) 0.1 (0.0-1.5) % Neut # (Auto) 7.3 H (1.4-5.7) K/uL Lymph # (Auto) 1.2 (0.6-2.4) K/uL [place] # (Auto) 0.6 (0.0-0.8) K/uL Eos # (Auto) 0.1 (0.0-0.7) K/uL Baso # (Auto) 0.0 (0.0-0.1) K/uL Nucleated RBC % 0.0 /100WBC Nucleated RBCs # 0 K/uL Lactate (0.20-2.00) mmol/L Sodium 140 (136-145) mmol/L Potassium 3.5 (3.5-5.1) mmol/L Chloride 106 (98-107) mmol/L Carbon Dioxide 27.0 (21.0-32.0) mmol/L BUN 9 (7.0-18.0) mg/dL Creatinine 0.6 (0.6-1.0) mg/dL Est Cr Clr Drug Dosing 95.62 mL/min Estimated GFR (MDRD) > 60.0 ml/min Glucose 108 H (74-106) mg/dL Calcium 7.7 L (8.5-10.1) mg/dL Phosphorus 3.9 (2.6-4.7) mg/dL Magnesium 1.9 (1.8-2.4) mg/dL Total Bilirubin (0.2-1.0) mg/dL AST (15-37) IU/L ALT (14-63) IU/L Alkaline Phosphatase (46-116) U/L Total Protein (6.4-8.2) g/dL Albumin (3.4-5.0) g/dL Globulin (2.6-4.0) g/dL Albumin/Globulin Ratio (0.9-1.6) Lipase (73-393) U/L Urine Color YELLOW Urine Appearance CLEAR Urine pH 6.5 (5.0-8.0) Ur Specific [place] <= 1.005 (1.001-1.035) Urine Protein NEGATIVE (NEGATIVE) mg/dL Urine Glucose (UA) NEGATIVE (NEGATIVE) mg/dL Urine Ketones NEGATIVE (NEGATIVE) mg/dL Urine Occult Blood NEGATIVE (NEGATIVE) Urine Nitrite NEGATIVE (NEGATIVE) Urine Bilirubin NEGATIVE (NEGATIVE) Urine Urobilinogen 0.2 (<2.0) EU/dL Ur Leukocyte Esterase NEGATIVE (NEGATIVE) Med Orders - Current: Current Medications Albuterol/Ipratropium (Duoneb 3.0-0.5 Mg/3 Ml) 3 ml NEB Q4HRRT PRN PRN Reason: Shortness Of Breath/wheezing Hydromorphone HCl (Dilaudid) 0.5 mg IVPUSH Q3H PRN PRN Reason: Pain Last Admin: 11/02/19 12:05 Dose: 0.5 mg Sodium Chloride (Normal Saline) 1,000 mls @ 150 mls/hr IV ASDIRECTED MARJORIE Last Admin: 11/02/19 12:00 Dose: 150 mls/hr Piperacillin Sod/Tazobactam (Sod 3.375 gm/ Sodium Chloride) 50 mls @ 100 mls/ hr IV Q6H MARJORIE Last Admin: 11/02/19 10:07 Dose: 100 mls/hr Promethazine HCl (Phenergan) 12.5 mg IM Q4H PRN PRN Reason: Nausea/Vomiting Last Admin: 11/02/19 10:04 Dose: 12.5 mg Discontinued Medications Hydromorphone HCl (Dilaudid) 0.5 mg IVPUSH Q1H PRN PRN Reason: Pain Last Admin: 11/02/19 08:00 Dose: 0.5 mg Sodium Chloride (Normal Saline) 1,000 mls @ 999 mls/hr IV STAT ONE Stop: 11/01/19 19:04 Last Admin: 11/01/19 18:27 Dose: 999 mls/hr Ciprofloxacin/Dextrose 400 mg/ (Premix) 200 mls @ 200 mls/hr IV Q12H [facility] Metronidazole 500 mg/ Premix 100 mls @ 100 mls/hr IV Q8H [facility] Iopamidol (Isovue Multipack-370 (76%)) 100 ml IVPUSH ONETIME ONE Stop: 11/01/19 20:59 Last Admin: 11/01/19 21:02 Dose: 100 ml Ketorolac Tromethamine (Toradol) 30 mg IVPUSH ONETIME ONE Stop: 11/01/19 18:05 Last Admin: 11/01/19 18:27 Dose: 30 mg Morphine Sulfate (Morphine) 2 mg IVPUSH ONETIME ONE Stop: 11/01/19 18:56 Last Admin: 11/01/19 18:57 Dose: 2 mg Morphine Sulfate (Morphine) Confirm Administered Dose 2 mg .ROUTE .STK-MED ONE Stop: 11/01/19 18:55 Last Admin: 11/01/19 19:00 Dose: Not Given Ondansetron HCl (Zofran) 8 mg IVPUSH ONETIME ONE Stop: 11/01/19 18:05 Last Admin: 11/01/19 18:27 Dose: 8 mg Ondansetron HCl (Zofran) 4 mg IVPUSH Q4H PRN PRN Reason: Nausea/Vomiting - Exam General: Alert, Oriented HEENT: EOMI Neck: Supple Lungs: Clear to Auscultation, Normal Respiratory Effort Cardiovascular: Regular Rate, Regular Rhythm GI/Abdominal Exam: Other (diffuse abdominal tenderness w/o rebound tenderness. no organomegaly . no suprapubic or flank tenderness. ) Skin: Warm, Dry, Intact Neurological: No New Focal Deficit Psy/Mental Status: Alert, Normal Mood Sepsis Event Note - Evaluation Sepsis Screening Result: No Definite Risk - Focused Exam Vital Signs: Vital Signs Temp Pulse Resp BP Pulse Ox 11/02/19 07:59 122/63 11/02/19 07:15 97.4 F 61 18 95/51 L 93 L 11/02/19 04:00 97.1 F 65 16 114/66 95 Date Exam was Performed: 11/02/19 Time Exam was Performed: 14:03 - Problem List Review Problem List Initiated/Reviewed/Updated: Yes - Plan Plan:: 44 y/o F comes in for evaluation of abdominal pain, CT abdomen shows possible enteritis vs ileus vs partial obstruction Had diarrhea yesterday, continues to pass flatus Continue NPO with ice-chips for now for bowel rest Will continue IV antibiotics for possible enteritis Cont IVF resuscitation Pain control with Dilaudid Zofran for Nausea f/u on stool studies and blood cultures Surgery on board, appreciate recommendations Continue to monitor vitals closely Monitor and replete electrolytes as needed Leukocytosis: resolved on Zosyn Macrocytic anemia : continue to monitor; will order B12 /folate studies on follow up labs <Tisha Pierson - Last Filed: 11/05/19 11:39> - Patient Data Vitals - Most Recent: Last Vital Signs Temp 36.2 C 11/04/19 07:43 Pulse 65 11/04/19 07:43 Resp 19 11/04/19 07:43 BP 127/73 11/04/19 07:43 Pulse Ox 93 L 11/04/19 07:43 Aaron Results Last 24 Hours: Microbiology 11/03/19 11:42 Stool Culture - Final Stool / Feces NO SALMONELLA, SHIGELLA,OR E.COLI O157 ISOLATED Campylobacter Antigen Assay - Final NEGATIVE CAMPYLOBACTER AG REFERENCE RANGE: NEGATIVE Shiga Toxin I - Final NEGATIVE FOR SHIGA TOXIN 1 REFERENCE RANGE: NEGATIVE Shiga Toxin II - Final NEGATIVE FOR SHIGA TOXIN 2 REFERENCE RANGE: NEGATIVE 11/01/19 18:34 Aerobic Blood Culture - Preliminary Blood - Venous - Lab Draw NO GROWTH AFTER 3 DAYS Anaerobic Blood Culture - Preliminary NO GROWTH AFTER 3 DAYS 11/01/19 18:23 Aerobic Blood Culture - Preliminary Blood - Venous NO GROWTH AFTER 3 DAYS Anaerobic Blood Culture - Preliminary NO GROWTH AFTER 3 DAYS Med Orders - Current: Current Medications Discontinued Medications Albuterol/Ipratropium (Duoneb 3.0-0.5 Mg/3 Ml) 3 ml NEB Q4HRRT PRN PRN Reason: Shortness Of Breath/wheezing Folic Acid (Folic Acid) 1 mg PO DAILY [facility] Last Admin: 11/04/19 10:24 Dose: 1 mg Hydromorphone HCl (Dilaudid) 0.5 mg IVPUSH Q1H PRN PRN Reason: Pain Last Admin: 11/02/19 08:00 Dose: 0.5 mg Hydromorphone HCl (Dilaudid) 0.5 mg IVPUSH Q3H PRN PRN Reason: Pain Last Admin: 11/04/19 03:01 Dose: 0.5 mg Sodium Chloride (Normal Saline) 1,000 mls @ 999 mls/hr IV STAT ONE Stop: 11/01/19 19:04 Last Admin: 11/01/19 18:27 Dose: 999 mls/hr Sodium Chloride (Normal Saline) 1,000 mls @ 150 mls/hr IV ASDIRECTED [facility] Last Admin: 11/04/19 02:59 Dose: 150 mls/hr Piperacillin Sod/Tazobactam (Sod 3.375 gm/ Sodium Chloride) 50 mls @ 100 mls/ hr IV Q6H [facility] Last Admin: 11/04/19 10:24 Dose: 100 mls/hr Ciprofloxacin/Dextrose 400 mg/ (Premix) 200 mls @ 200 mls/hr IV Q12H [facility] Metronidazole 500 mg/ Premix 100 mls @ 100 mls/hr IV Q8H [facility] Calcium Gluconate 1 gm/ Sodium (Chloride) 110 mls @ 110 mls/hr IV ONETIME ONE Stop: 11/03/19 10:14 Last Admin: 11/03/19 10:21 Dose: 110 mls/hr Iopamidol (Isovue Multipack-370 (76%)) 100 ml IVPUSH ONETIME ONE Stop: 11/01/19 20:59 Last Admin: 11/01/19 21:02 Dose: 100 ml Ketorolac Tromethamine (Toradol) 30 mg IVPUSH ONETIME ONE Stop: 11/01/19 18:05 Last Admin: 11/01/19 18:27 Dose: 30 mg Morphine Sulfate (Morphine) 2 mg IVPUSH ONETIME ONE Stop: 11/01/19 18:56 Last Admin: 11/01/19 18:57 Dose: 2 mg Morphine Sulfate (Morphine) Confirm Administered Dose 2 mg .ROUTE .STK-MED ONE Stop: 11/01/19 18:55 Last Admin: 11/01/19 19:00 Dose: Not Given Ondansetron HCl (Zofran) 8 mg IVPUSH ONETIME ONE Stop: 11/01/19 18:05 Last Admin: 11/01/19 18:27 Dose: 8 mg Ondansetron HCl (Zofran) 4 mg IVPUSH Q4H PRN PRN Reason: Nausea/Vomiting Potassium Chloride (Klor-Con M20) 40 meq PO ONETIME ONE Stop: 11/03/19 08:27 Last Admin: 11/03/19 09:14 Dose: 40 meq Promethazine HCl (Phenergan) 12.5 mg IM Q4H PRN PRN Reason: Nausea/Vomiting Last Admin: 11/04/19 03:00 Dose: 12.5 mg - Problem List & Annotations (1) Enteritis SNOMED Code(s): 28233410 Code(s): K52.9 - NONINFECTIVE GASTROENTERITIS AND COLITIS, UNSPECIFIED Status: Acute (2) Leukocytosis SNOMED Code(s): 574411780, 134159136 Code(s): D72.829 - ELEVATED WHITE BLOOD CELL COUNT, UNSPECIFIED Status: Acute Qualifiers: Leukocytosis type: unspecified Qualified Code(s): D72.829 - Elevated white blood cell count, unspecified - Problem List Review Problem List Initiated/Reviewed/Updated: Yes - Assessment Assessment:: I have seen and evaluated the patient and agree with the residents note unless specified in my note
[2019-11-03] MEDS: Promethazine 25 MG/ML SDV IM PRN ×2 (01:23→21:05)
[2019-11-03] MEDS: HYDROmorphone 1 MG/ML Syringe IVPUSH PRN ×3 (01:24→21:04)
[2019-11-03] MEDS: Sodium Chloride 0.9% 1,000 ML IV SCH ×3 (02:19→17:58)
[2019-11-03] MEDS: Piperacillin/Tazobactam 3.375 GM in Sodium Chloride 0.9% 50 ML IV SCH ×4 (04:00→21:18)
[2019-11-03 06:05] LABS: BLOOD UREA NITROGEN,BUN 9 mg/dL (7.0-18.0); CARBON DIOXIDE,CO2 23.5 mmol/L (21.0-32.0); CHLORIDE,CL 109 mmol/L (98-107); GLUCOSE RANDOM 69 mg/dL (74-106); POTASSIUM,K 3.1 mmol/L (3.5-5.1); SODIUM,NA 142 mmol/L (136-145)
[2019-11-03] MEDS ORDERED: Potassium Chloride 20 MEQ Tab.ER PO ONE (08:26)
[2019-11-03] MEDS ORDERED: Calcium Gluconate 10% 1 GM/10 ML SDV IVPUSH ONE (08:27)
[2019-11-03] MEDS ORDERED: Calcium Gluconate 1 GM in Sodium Chloride 0.9% 100 ML IV ONE (09:15)
--- NOTE | 2019-11-03 12:28 | PCM.PN ---
<Cheryl Monroe - Last Filed: 11/03/19 12:24> - General Info Date of Service: 11/03/19 Subjective Update: Patient seen at bedside; endorsing feeling better and stronger. Would like to try to eat ; mentioning her appetite is returning. States pain is still there but not as bad as yesterday. Functional Status: Reports: Pain Controlled - Review of Systems General: Denies: Fever, Chills HEENT: Denies: Headaches Pulmonary: Denies: Shortness of Breath, Cough Cardiovascular: Denies: Chest Pain, Edema Gastrointestinal: Reports: Abdominal Pain. Denies: Constipation, Diarrhea, Nausea, Vomiting Genitourinary: Denies: Dysuria Musculoskeletal: Reports: Neck Pain, Back Pain Skin: Reports: No Symptoms Neurological: Denies: Headache - Patient Data Vitals - Most Recent: Last Vital Signs Temp 98.8 F 11/03/19 07:45 Pulse 65 11/03/19 07:45 Resp 16 11/03/19 07:45 BP 124/57 L 11/03/19 07:45 Pulse Ox 92 L 11/03/19 07:45 Weight - Most Recent: 61.3 kg I&O - Last 24 Hours: Intake & Output 11/02/19 11/03/19 11/03/19 22:59 06:59 14:59 Intake Total 1676 1211 Output Total 375 700 Balance 1301 511 Lab Results Last 24 Hours: Laboratory Results - last 24 hr 11/03/19 11/03/19 Range/Units 04:50 04:50 WBC 6.33 (4.0-11.0) K/uL RBC 3.30 L (4.30-5.90) M/uL Hgb 11.3 L (12.0-16.0) g/dL Hct 34.0 L (36.0-46.0) % MCV 103.0 H (80.0-98.0) fL MCH 34.2 H (27.0-32.0) pg MCHC 33.2 (31.0-37.0) g/dL RDW Std Deviation 50.3 (28.0-62.0) fl RDW Coeff of Aristides 14 (11.0-15.0) % Plt Count 159 (150-400) K/uL MPV 10.90 (7.40-12.00) fL Neut % (Auto) 63.8 (48.0-80.0) % Lymph % (Auto) 25.0 (16.0-40.0) % [place] % (Auto) 8.4 (0.0-15.0) % Eos % (Auto) 2.5 (0.0-7.0) % Baso % (Auto) 0.3 (0.0-1.5) % Neut # (Auto) 4.0 (1.4-5.7) K/uL Lymph # (Auto) 1.6 (0.6-2.4) K/uL [place] # (Auto) 0.5 (0.0-0.8) K/uL Eos # (Auto) 0.2 (0.0-0.7) K/uL Baso # (Auto) 0.0 (0.0-0.1) K/uL Sodium 142 (136-145) mmol/L Potassium 3.1 L (3.5-5.1) mmol/L Chloride 109 H (98-107) mmol/L Carbon Dioxide 23.5 (21.0-32.0) mmol/L BUN 9 (7.0-18.0) mg/dL Creatinine 0.7 (0.6-1.0) mg/dL Est Cr Clr Drug Dosing 81.96 mL/min Estimated GFR (MDRD) > 60.0 ml/min Glucose 69 L (74-106) mg/dL Calcium 7.5 L (8.5-10.1) mg/dL Total Bilirubin 0.4 (0.2-1.0) mg/dL AST 32 (15-37) IU/L ALT 37 (14-63) IU/L Alkaline Phosphatase 79 (46-116) U/L Total Protein 5.8 L (6.4-8.2) g/dL Albumin 2.9 L (3.4-5.0) g/dL Globulin 2.9 (2.6-4.0) g/dL Albumin/Globulin Ratio 1.0 (0.9-1.6) Vitamin B12 421 (193-986) pg/mL Aaron Results Last 24 Hours: Microbiology 11/01/19 18:34 Aerobic Blood Culture - Preliminary Blood - Venous - Lab Draw NO GROWTH AFTER 1 DAY Anaerobic Blood Culture - Preliminary NO GROWTH AFTER 1 DAY 11/01/19 18:23 Aerobic Blood Culture - Preliminary Blood - Venous NO GROWTH AFTER 1 DAY Anaerobic Blood Culture - Preliminary NO GROWTH AFTER 1 DAY Med Orders - Current: Current Medications Albuterol/Ipratropium (Duoneb 3.0-0.5 Mg/3 Ml) 3 ml NEB Q4HRRT PRN PRN Reason: Shortness Of Breath/wheezing Hydromorphone HCl (Dilaudid) 0.5 mg IVPUSH Q3H PRN PRN Reason: Pain Last Admin: 11/03/19 01:24 Dose: 0.5 mg Sodium Chloride (Normal Saline) 1,000 mls @ 150 mls/hr IV ASDIRECTED [facility] Last Admin: 11/03/19 09:23 Dose: 150 mls/hr Piperacillin Sod/Tazobactam (Sod 3.375 gm/ Sodium Chloride) 50 mls @ 100 mls/ hr IV Q6H [facility] Last Admin: 11/03/19 09:24 Dose: 100 mls/hr Promethazine HCl (Phenergan) 12.5 mg IM Q4H PRN PRN Reason: Nausea/Vomiting Last Admin: 11/03/19 01:23 Dose: 12.5 mg Discontinued Medications Hydromorphone HCl (Dilaudid) 0.5 mg IVPUSH Q1H PRN PRN Reason: Pain Last Admin: 11/02/19 08:00 Dose: 0.5 mg Sodium Chloride (Normal Saline) 1,000 mls @ 999 mls/hr IV STAT ONE Stop: 11/01/19 19:04 Last Admin: 11/01/19 18:27 Dose: 999 mls/hr Ciprofloxacin/Dextrose 400 mg/ (Premix) 200 mls @ 200 mls/hr IV Q12H [facility] Metronidazole 500 mg/ Premix 100 mls @ 100 mls/hr IV Q8H [facility] Calcium Gluconate 1 gm/ Sodium (Chloride) 110 mls @ 110 mls/hr IV ONETIME ONE Stop: 11/03/19 10:14 Last Admin: 11/03/19 10:21 Dose: 110 mls/hr Iopamidol (Isovue Multipack-370 (76%)) 100 ml IVPUSH ONETIME ONE Stop: 11/01/19 20:59 Last Admin: 11/01/19 21:02 Dose: 100 ml Ketorolac Tromethamine (Toradol) 30 mg IVPUSH ONETIME ONE Stop: 11/01/19 18:05 Last Admin: 11/01/19 18:27 Dose: 30 mg Morphine Sulfate (Morphine) 2 mg IVPUSH ONETIME ONE Stop: 11/01/19 18:56 Last Admin: 11/01/19 18:57 Dose: 2 mg Morphine Sulfate (Morphine) Confirm Administered Dose 2 mg .ROUTE .STK-MED ONE Stop: 11/01/19 18:55 Last Admin: 11/01/19 19:00 Dose: Not Given Ondansetron HCl (Zofran) 8 mg IVPUSH ONETIME ONE Stop: 11/01/19 18:05 Last Admin: 11/01/19 18:27 Dose: 8 mg Ondansetron HCl (Zofran) 4 mg IVPUSH Q4H PRN PRN Reason: Nausea/Vomiting Potassium Chloride (Klor-Con M20) 40 meq PO ONETIME ONE Stop: 11/03/19 08:27 Last Admin: 11/03/19 09:14 Dose: 40 meq - Exam General: Alert, Oriented HEENT: EOMI, Mucous Membr. Moist/[place] Neck: Supple Lungs: Clear to Auscultation, Normal Respiratory Effort Cardiovascular: Regular Rate, Regular Rhythm GI/Abdominal Exam: Other (interval improvment of abdominal tenderness; no rebound tenderness. no organomegaly ) Extremities: Non-Tender Skin: Warm, Intact Psy/Mental Status: Normal Mood Sepsis Event Note - Evaluation Sepsis Screening Result: No Definite Risk - Focused Exam Vital Signs: Vital Signs Temp Pulse Resp BP Pulse Ox 11/03/19 07:45 98.8 F 65 16 124/57 L 92 L 11/03/19 07:40 89 L 11/03/19 04:00 98.1 F 66 16 120/57 L 92 L Date Exam was Performed: 11/03/19 Time Exam was Performed: 12:24 - Problem List Review Problem List Initiated/Reviewed/Updated: Yes - My Orders Last 24 Hours: My Active Orders 11/03/19 04:50 FOLATE, RBC [REF] Routine - Plan Plan:: 44 y/o F comes in for evaluation of abdominal pain, CT abdomen shows possible enteritis vs ileus vs partial obstruction Will continue IV antibiotics for possible enteritis Pain control with Dilaudid Zofran for Nausea f/u on stool studies and blood cultures Surgery on board, appreciate recommendations Continue to monitor vitals closely Monitor and replete electrolytes as needed Leukocytosis: resolved on Zosyn Macrocytic anemia : continue to monitor; will order B12 /folate studies on follow up labs Diet : advance diet to soft mechanical; will continue to monitor today <Tisha Pierson - Last Filed: 11/05/19 11:40> - Patient Data Vitals - Most Recent: Last Vital Signs Temp 36.2 C 11/04/19 07:43 Pulse 65 11/04/19 07:43 Resp 19 11/04/19 07:43 BP 127/73 11/04/19 07:43 Pulse Ox 93 L 11/04/19 07:43 Aaron Results Last 24 Hours: Microbiology 11/03/19 11:42 Stool Culture - Final Stool / Feces NO SALMONELLA, SHIGELLA,OR E.COLI O157 ISOLATED Campylobacter Antigen Assay - Final NEGATIVE CAMPYLOBACTER AG REFERENCE RANGE: NEGATIVE Shiga Toxin I - Final NEGATIVE FOR SHIGA TOXIN 1 REFERENCE RANGE: NEGATIVE Shiga Toxin II - Final NEGATIVE FOR SHIGA TOXIN 2 REFERENCE RANGE: NEGATIVE 11/01/19 18:34 Aerobic Blood Culture - Preliminary Blood - Venous - Lab Draw NO GROWTH AFTER 3 DAYS Anaerobic Blood Culture - Preliminary NO GROWTH AFTER 3 DAYS 11/01/19 18:23 Aerobic Blood Culture - Preliminary Blood - Venous NO GROWTH AFTER 3 DAYS Anaerobic Blood Culture - Preliminary NO GROWTH AFTER 3 DAYS Med Orders - Current: Current Medications Discontinued Medications Albuterol/Ipratropium (Duoneb 3.0-0.5 Mg/3 Ml) 3 ml NEB Q4HRRT PRN PRN Reason: Shortness Of Breath/wheezing Folic Acid (Folic Acid) 1 mg PO DAILY [facility] Last Admin: 11/04/19 10:24 Dose: 1 mg Hydromorphone HCl (Dilaudid) 0.5 mg IVPUSH Q1H PRN PRN Reason: Pain Last Admin: 11/02/19 08:00 Dose: 0.5 mg Hydromorphone HCl (Dilaudid) 0.5 mg IVPUSH Q3H PRN PRN Reason: Pain Last Admin: 11/04/19 03:01 Dose: 0.5 mg Sodium Chloride (Normal Saline) 1,000 mls @ 999 mls/hr IV STAT ONE Stop: 11/01/19 19:04 Last Admin: 11/01/19 18:27 Dose: 999 mls/hr Sodium Chloride (Normal Saline) 1,000 mls @ 150 mls/hr IV ASDIRECTED [facility] Last Admin: 11/04/19 02:59 Dose: 150 mls/hr Piperacillin Sod/Tazobactam (Sod 3.375 gm/ Sodium Chloride) 50 mls @ 100 mls/ hr IV Q6H [facility] Last Admin: 11/04/19 10:24 Dose: 100 mls/hr Ciprofloxacin/Dextrose 400 mg/ (Premix) 200 mls @ 200 mls/hr IV Q12H [facility] Metronidazole 500 mg/ Premix 100 mls @ 100 mls/hr IV Q8H [facility] Calcium Gluconate 1 gm/ Sodium (Chloride) 110 mls @ 110 mls/hr IV ONETIME ONE Stop: 11/03/19 10:14 Last Admin: 11/03/19 10:21 Dose: 110 mls/hr Iopamidol (Isovue Multipack-370 (76%)) 100 ml IVPUSH ONETIME ONE Stop: 11/01/19 20:59 Last Admin: 11/01/19 21:02 Dose: 100 ml Ketorolac Tromethamine (Toradol) 30 mg IVPUSH ONETIME ONE Stop: 11/01/19 18:05 Last Admin: 11/01/19 18:27 Dose: 30 mg Morphine Sulfate (Morphine) 2 mg IVPUSH ONETIME ONE Stop: 11/01/19 18:56 Last Admin: 11/01/19 18:57 Dose: 2 mg Morphine Sulfate (Morphine) Confirm Administered Dose 2 mg .ROUTE .STK-MED ONE Stop: 11/01/19 18:55 Last Admin: 11/01/19 19:00 Dose: Not Given Ondansetron HCl (Zofran) 8 mg IVPUSH ONETIME ONE Stop: 11/01/19 18:05 Last Admin: 11/01/19 18:27 Dose: 8 mg Ondansetron HCl (Zofran) 4 mg IVPUSH Q4H PRN PRN Reason: Nausea/Vomiting Potassium Chloride (Klor-Con M20) 40 meq PO ONETIME ONE Stop: 11/03/19 08:27 Last Admin: 11/03/19 09:14 Dose: 40 meq Promethazine HCl (Phenergan) 12.5 mg IM Q4H PRN PRN Reason: Nausea/Vomiting Last Admin: 11/04/19 03:00 Dose: 12.5 mg - Problem List & Annotations (1) Enteritis SNOMED Code(s): 07877759 Code(s): K52.9 - NONINFECTIVE GASTROENTERITIS AND COLITIS, UNSPECIFIED Status: Acute (2) Leukocytosis SNOMED Code(s): 706761556, 214343392 Code(s): D72.829 - ELEVATED WHITE BLOOD CELL COUNT, UNSPECIFIED Status: Acute Qualifiers: Leukocytosis type: unspecified Qualified Code(s): D72.829 - Elevated white blood cell count, unspecified - My Orders Last 24 Hours: I have seen and evaluated the patient and agree with the residents note unless specified in my note
--- NOTE | 2019-11-03 16:32 | PCM.SN ---
- Free Text/Narrative Note: Patient's vital signs stable overnight. White blood count within normal limits. Subjectively the patient feels less abdominal pain and bloating this morning. Patient's diet was advanced to clears without any difficulty. On physical exam her abdominal pain was minimal and her distention was improved. Continue to advance diet as tolerated. I feel the patient's symptoms are likely due to an infectious process rather than a small bowel obstruction. If tolerating a regular diet without any pain can be discharged per medicine team's discretion. Follow-up with primary care physician. Call if any questions or concerns.
[2019-11-04] MEDS: Sodium Chloride 0.9% 1,000 ML IV SCH (02:59)
[2019-11-04] MEDS: Promethazine 25 MG/ML SDV IM PRN (03:00)
[2019-11-04] MEDS: HYDROmorphone 1 MG/ML Syringe IVPUSH PRN (03:01)
[2019-11-04] MEDS: Piperacillin/Tazobactam 3.375 GM in Sodium Chloride 0.9% 50 ML IV SCH ×2 (03:01→10:24)
[2019-11-04 06:08] LABS: BLOOD UREA NITROGEN,BUN 11 mg/dL (7.0-18.0); CARBON DIOXIDE,CO2 25.5 mmol/L (21.0-32.0); CHLORIDE,CL 109 mmol/L (98-107); GLUCOSE RANDOM 89 mg/dL (74-106); POTASSIUM,K 3.7 mmol/L (3.5-5.1); SODIUM,NA 142 mmol/L (136-145)
[2019-11-04 07:43] VITALS: BP 127/73; PULSE 65
--- NOTE | 2019-11-04 08:50 | PCM.DCSUM1 ---
<Cheryl Monroe - Last Filed: 11/04/19 14:39> Discharge Summary - Hospital Course Free Text/Narrative:: Discharge summary Admission date 11/01/2019 Discharge date November 12, 2019 Admission diagnoses: Abdominal pain possibly secondary to ileus versus enteritis versus early obstruction Past medical history of anxiety Discharge diagnoses: Abdominal pain resolved possibly secondary to ileus versus enteritis versus early obstruction Consultations: Surgery/Dr Dewey Procedures: None Hospital course: Patient is a 44-year-old female admitted on November 01 for sudden onset of lower abdominal pain that woke her up in the middle of the night patient does have a past medical history of anxiety ovarian cystectomy via laparoscopy patient endorsed having some diarrhea after eating a large meal the day prior to admission on admission patient was found to have a leukocytosis of 15,000 with a left shift CT abdomen showed enteritis versus mild ileus or early or partial obstruction. Dr. Dewey of surgery was consulted ;recommended patient be made n.p.o. initially. Patient throughout her stay and on presentation denied any chest pain shortness of breath palpitations cough constipation bloody stool or bloody urine and or other urinary symptoms. Following day diet was advanced from clears to full diet patient tolerated diet well. On day of discharge patient endorsed wanting to go home, denied any chest pain abdominal pain. Was endorsing an appetite and would like to go home. Pt. sent home on Ciprofloxacin to complete course if infectious etiology was present. Disposition: Home Follow-up: PCP /Surgery - Discharge Data Discharge Date: 11/04/19 Discharge Disposition: Home, Self-Care 01 Condition: Fair - Referral to Home Health Primary Care Physician: Mary Sebastian MD - Patient Summary/Data Consults: Consultations 11/01/19 20:52 Consult to Physician [CONS] Stat - Discharge Plan Prescriptions/Med Rec: Ciprofloxacin [Ciprofloxacin HCl] 500 mg PO TID 5 Days #15 tab Home Medications: Home Meds Ibuprofen [Motrin] 400 - 600 mg PO Q6H PRN 05/24/18 [History] Melatonin 3 mg PO BEDTIME PRN 05/24/18 [History] FLUoxetine HCl [Fluoxetine HCl] 20 mg PO DAILY 11/01/19 [History] busPIRone HCl [Buspirone HCl] 15 mg PO DAILY 11/01/19 [History] Ciprofloxacin [Ciprofloxacin HCl] 500 mg PO TID 5 Days #15 tab 11/04/19 [Rx] Folic Acid 1 mg PO DAILY tablet 11/04/19 [Rx] Patient Handouts: Abdominal Pain, Adult, [id number], Ciprofloxacin tablets Referrals: Rupert Castanon DO [Physician] - 11/11/19 1:30 pm - Discharge Summary/Plan Comment DC Time >30 min.: No - Patient Data Vitals - Most Recent: Last Vital Signs Temp 97.2 F 11/04/19 07:43 Pulse 65 11/04/19 07:43 Resp 19 11/04/19 07:43 BP 127/73 11/04/19 07:43 Pulse Ox 93 L 11/04/19 07:43 Weight - Most Recent: 61.3 kg I&O - Last 24 hours: Intake & Output 11/03/19 11/04/19 11/04/19 22:59 06:59 14:59 Intake Total 2922 1847 Output Total 600 600 Balance 2322 1247 Lab Results - Last 24 hrs: Laboratory Results - last 24 hr 11/04/19 11/04/19 Range/Units 05:26 05:26 WBC 8.57 (4.0-11.0) K/uL RBC 3.34 L (4.30-5.90) M/uL Hgb 11.1 L (12.0-16.0) g/dL Hct 33.9 L (36.0-46.0) % MCV 101.5 H (80.0-98.0) fL MCH 33.2 H (27.0-32.0) pg MCHC 32.7 (31.0-37.0) g/dL RDW Std Deviation 50.8 (28.0-62.0) fl RDW Coeff of Aristides 14 (11.0-15.0) % Plt Count 181 (150-400) K/uL MPV 10.80 (7.40-12.00) fL Neut % (Auto) 67.2 (48.0-80.0) % Lymph % (Auto) 23.6 (16.0-40.0) % [place] % (Auto) 6.8 (0.0-15.0) % Eos % (Auto) 2.2 (0.0-7.0) % Baso % (Auto) 0.2 (0.0-1.5) % Neut # (Auto) 5.8 H (1.4-5.7) K/uL Lymph # (Auto) 2.0 (0.6-2.4) K/uL [place] # (Auto) 0.6 (0.0-0.8) K/uL Eos # (Auto) 0.2 (0.0-0.7) K/uL Baso # (Auto) 0.0 (0.0-0.1) K/uL Nucleated RBC % 0.0 /100WBC Nucleated RBCs # 0 K/uL Sodium 142 (136-145) mmol/L Potassium 3.7 (3.5-5.1) mmol/L Chloride 109 H (98-107) mmol/L Carbon Dioxide 25.5 (21.0-32.0) mmol/L BUN 11 (7.0-18.0) mg/dL Creatinine 0.8 (0.6-1.0) mg/dL Est Cr Clr Drug Dosing 71.71 mL/min Estimated GFR (MDRD) > 60.0 ml/min Glucose 89 (74-106) mg/dL Calcium 7.9 L (8.5-10.1) mg/dL Total Bilirubin 0.3 (0.2-1.0) mg/dL AST 35 (15-37) IU/L ALT 38 (14-63) IU/L Alkaline Phosphatase 76 (46-116) U/L Total Protein 5.7 L (6.4-8.2) g/dL Albumin 2.8 L (3.4-5.0) g/dL Globulin 2.9 (2.6-4.0) g/dL Albumin/Globulin Ratio 1.0 (0.9-1.6) TARA Results - Last 24 hrs: Microbiology 11/01/19 18:34 Aerobic Blood Culture - Preliminary Blood - Venous - Lab Draw NO GROWTH AFTER 2 DAYS Anaerobic Blood Culture - Preliminary NO GROWTH AFTER 2 DAYS 11/01/19 18:23 Aerobic Blood Culture - Preliminary Blood - Venous NO GROWTH AFTER 2 DAYS Anaerobic Blood Culture - Preliminary NO GROWTH AFTER 2 DAYS 11/03/19 11:43 C. difficile Antigen & Toxins A,B - Final Stool / Feces 11/03/19 11:42 Campylobacter Antigen Assay - Final Stool / Feces NEGATIVE CAMPYLOBACTER AG REFERENCE RANGE: NEGATIVE 11/03/19 11:42 Stool for WBCs - Final Stool / Feces POSITIVE FOR WBC'S REFERENCE RANGE: NO WBC SEEN Med Orders - Current: Current Medications Albuterol/Ipratropium (Duoneb 3.0-0.5 Mg/3 Ml) 3 ml NEB Q4HRRT PRN PRN Reason: Shortness Of Breath/wheezing Hydromorphone HCl (Dilaudid) 0.5 mg IVPUSH Q3H PRN PRN Reason: Pain Last Admin: 11/04/19 03:01 Dose: 0.5 mg Sodium Chloride (Normal Saline) 1,000 mls @ 150 mls/hr IV ASDIRECTED [facility] Last Admin: 11/04/19 02:59 Dose: 150 mls/hr Piperacillin Sod/Tazobactam (Sod 3.375 gm/ Sodium Chloride) 50 mls @ 100 mls/ hr IV Q6H [facility] Last Admin: 11/04/19 03:01 Dose: 100 mls/hr Promethazine HCl (Phenergan) 12.5 mg IM Q4H PRN PRN Reason: Nausea/Vomiting Last Admin: 11/04/19 03:00 Dose: 12.5 mg Discontinued Medications Hydromorphone HCl (Dilaudid) 0.5 mg IVPUSH Q1H PRN PRN Reason: Pain Last Admin: 11/02/19 08:00 Dose: 0.5 mg Sodium Chloride (Normal Saline) 1,000 mls @ 999 mls/hr IV STAT ONE Stop: 11/01/19 19:04 Last Admin: 11/01/19 18:27 Dose: 999 mls/hr Ciprofloxacin/Dextrose 400 mg/ (Premix) 200 mls @ 200 mls/hr IV Q12H [facility] Metronidazole 500 mg/ Premix 100 mls @ 100 mls/hr IV Q8H [facility] Calcium Gluconate 1 gm/ Sodium (Chloride) 110 mls @ 110 mls/hr IV ONETIME ONE Stop: 11/03/19 10:14 Last Admin: 11/03/19 10:21 Dose: 110 mls/hr Iopamidol (Isovue Multipack-370 (76%)) 100 ml IVPUSH ONETIME ONE Stop: 11/01/19 20:59 Last Admin: 11/01/19 21:02 Dose: 100 ml Ketorolac Tromethamine (Toradol) 30 mg IVPUSH ONETIME ONE Stop: 11/01/19 18:05 Last Admin: 11/01/19 18:27 Dose: 30 mg Morphine Sulfate (Morphine) 2 mg IVPUSH ONETIME ONE Stop: 11/01/19 18:56 Last Admin: 11/01/19 18:57 Dose: 2 mg Morphine Sulfate (Morphine) Confirm Administered Dose 2 mg .ROUTE .STK-MED ONE Stop: 11/01/19 18:55 Last Admin: 11/01/19 19:00 Dose: Not Given Ondansetron HCl (Zofran) 8 mg IVPUSH ONETIME ONE Stop: 11/01/19 18:05 Last Admin: 11/01/19 18:27 Dose: 8 mg Ondansetron HCl (Zofran) 4 mg IVPUSH Q4H PRN PRN Reason: Nausea/Vomiting Potassium Chloride (Klor-Con M20) 40 meq PO ONETIME ONE Stop: 11/03/19 08:27 Last Admin: 11/03/19 09:14 Dose: 40 meq <Tisha Pierson - Last Filed: 11/05/19 11:45> Discharge Summary - Referral to Home Health Primary Care Physician: Mary Sebastian MD - Discharge Diagnosis/Problem(s) (1) Enteritis SNOMED Code(s): 20946925 ICD Code: K52.9 - NONINFECTIVE GASTROENTERITIS AND COLITIS, UNSPECIFIED Status: Acute (2) Leukocytosis SNOMED Code(s): 080239719, 487458781 ICD Code: D72.829 - ELEVATED WHITE BLOOD CELL COUNT, UNSPECIFIED Status: Acute Qualifiers: Leukocytosis type: unspecified Qualified Code(s): D72.829 - Elevated white blood cell count, unspecified - Patient Summary/Data Consults: Consultations 11/01/19 20:52 Consult to Physician [CONS] Stat - Discharge Summary/Plan Comment Discharge Summary/Plan Comment: I have seen and evaluated the patient and agree with the residents note unless specified in my note - Patient Data Vitals - Most Recent: Last Vital Signs Temp 36.2 C 11/04/19 07:43 Pulse 65 11/04/19 07:43 Resp 19 11/04/19 07:43 BP 127/73 11/04/19 07:43 Pulse Ox 93 L 11/04/19 07:43 TARA Results - Last 24 hrs: Microbiology 11/03/19 11:42 Stool Culture - Final Stool / Feces NO SALMONELLA, SHIGELLA,OR E.COLI O157 ISOLATED Campylobacter Antigen Assay - Final NEGATIVE CAMPYLOBACTER AG REFERENCE RANGE: NEGATIVE Shiga Toxin I - Final NEGATIVE FOR SHIGA TOXIN 1 REFERENCE RANGE: NEGATIVE Shiga Toxin II - Final NEGATIVE FOR SHIGA TOXIN 2 REFERENCE RANGE: NEGATIVE 11/01/19 18:34 Aerobic Blood Culture - Preliminary Blood - Venous - Lab Draw NO GROWTH AFTER 3 DAYS Anaerobic Blood Culture - Preliminary NO GROWTH AFTER 3 DAYS 11/01/19 18:23 Aerobic Blood Culture - Preliminary Blood - Venous NO GROWTH AFTER 3 DAYS Anaerobic Blood Culture - Preliminary NO GROWTH AFTER 3 DAYS Med Orders - Current: Current Medications Discontinued Medications Albuterol/Ipratropium (Duoneb 3.0-0.5 Mg/3 Ml) 3 ml NEB Q4HRRT PRN PRN Reason: Shortness Of Breath/wheezing Folic Acid (Folic Acid) 1 mg PO DAILY [facility] Last Admin: 11/04/19 10:24 Dose: 1 mg Hydromorphone HCl (Dilaudid) 0.5 mg IVPUSH Q1H PRN PRN Reason: Pain Last Admin: 11/02/19 08:00 Dose: 0.5 mg Hydromorphone HCl (Dilaudid) 0.5 mg IVPUSH Q3H PRN PRN Reason: Pain Last Admin: 11/04/19 03:01 Dose: 0.5 mg Sodium Chloride (Normal Saline) 1,000 mls @ 999 mls/hr IV STAT ONE Stop: 11/01/19 19:04 Last Admin: 11/01/19 18:27 Dose: 999 mls/hr Sodium Chloride (Normal Saline) 1,000 mls @ 150 mls/hr IV ASDIRECTED [facility] Last Admin: 11/04/19 02:59 Dose: 150 mls/hr Piperacillin Sod/Tazobactam (Sod 3.375 gm/ Sodium Chloride) 50 mls @ 100 mls/ hr IV Q6H [facility] Last Admin: 11/04/19 10:24 Dose: 100 mls/hr Ciprofloxacin/Dextrose 400 mg/ (Premix) 200 mls @ 200 mls/hr IV Q12H [facility] Metronidazole 500 mg/ Premix 100 mls @ 100 mls/hr IV Q8H [facility] Calcium Gluconate 1 gm/ Sodium (Chloride) 110 mls @ 110 mls/hr IV ONETIME ONE Stop: 11/03/19 10:14 Last Admin: 11/03/19 10:21 Dose: 110 mls/hr Iopamidol (Isovue Multipack-370 (76%)) 100 ml IVPUSH ONETIME ONE Stop: 11/01/19 20:59 Last Admin: 11/01/19 21:02 Dose: 100 ml Ketorolac Tromethamine (Toradol) 30 mg IVPUSH ONETIME ONE Stop: 11/01/19 18:05 Last Admin: 11/01/19 18:27 Dose: 30 mg Morphine Sulfate (Morphine) 2 mg IVPUSH ONETIME ONE Stop: 11/01/19 18:56 Last Admin: 11/01/19 18:57 Dose: 2 mg Morphine Sulfate (Morphine) Confirm Administered Dose 2 mg .ROUTE .STK-MED ONE Stop: 11/01/19 18:55 Last Admin: 11/01/19 19:00 Dose: Not Given Ondansetron HCl (Zofran) 8 mg IVPUSH ONETIME ONE Stop: 11/01/19 18:05 Last Admin: 11/01/19 18:27 Dose: 8 mg Ondansetron HCl (Zofran) 4 mg IVPUSH Q4H PRN PRN Reason: Nausea/Vomiting Potassium Chloride (Klor-Con M20) 40 meq PO ONETIME ONE Stop: 11/03/19 08:27 Last Admin: 11/03/19 09:14 Dose: 40 meq Promethazine HCl (Phenergan) 12.5 mg IM Q4H PRN PRN Reason: Nausea/Vomiting Last Admin: 11/04/19 03:00 Dose: 12.5 mg
[2019-11-04] MEDS ORDERED: Folic Acid 1 MG Tab PO SCH (09:45)
== END 2019-11-04 12:15 | disposition home or self-care (01) ==
LOC: MW.ED 17:47 → MW.MS 20:58
PROVIDERS: ADMIT Student in an Organized Health Care Education/Training Program; ATTEND Student in an Organized Health Care Education/Training Program
DX: R10.9 Unspecified abdominal pain (principal); D72.829 Elevated white blood cell count, unspecified; F41.9 Anxiety disorder, unspecified; F17.210 Nicotine dependence, cigarettes, uncomplicated; Z79.899 Other long term (current) drug therapy
CPT/HCPCS: 36415; 74178; 80048; 80053; 81003; 82607; 82747; 83605; 83630; 83690; 83735; 84100; 85014; 85025; 87040; 87046; 87324; 87899; 96361; 96374; 96375; 99285; A9270; J0610; J1170; J1885; J2270; J2405; J2543; J2550; J7030; J7050; Q9967

== ENCOUNTER 2021-04-29 07:09 | Emergency (ER) | payer BC ==
--- NOTE | 2021-04-29 07:21 | EDM.PDOC ---
ED HPI GENERAL MEDICAL PROBLEM - General Chief Complaint: Abdominal Pain Stated Complaint: SEVERE ABDOMINAL PAIN Time Seen by Provider: 04/29/21 07:11 Source of Information: Reports: Patient History Limitations: Reports: No Limitations - History of Present Illness INITIAL COMMENTS - FREE TEXT/NARRATIVE: 46-year-old female past medical history small bowel obstruction treated non surgically presents for abdominal pain. Patient notes that she was in her normal state of health last night. She woke up with right lower quadrant pain that feels sharp and crampy. She tried to drink some coffee and walk around but symptoms worsened. She endorses nausea but no vomiting. Her last bowel movement was yesterday and normal. She denies any fevers. She denies any urinary symptoms of dysuria or hematuria. right lower abdomen Pain Score (Numeric/FACES): 9 - Related Data Allergies Allergy/AdvReac Type Severity Reaction Status Date / Time No Known Allergies Allergy Verified 04/29/21 07:18 Home Meds: Home Meds Ibuprofen [Motrin] 400 - 600 mg PO Q6H PRN 05/24/18 [History] Dicyclomine [Bentyl] 10 mg PO TID PRN #20 cap 04/29/21 [Rx] Ondansetron [Zofran ODT] 4 mg PO Q6H PRN #10 tab.dis 04/29/21 [Rx] Past Medical History - Past Health History Medical/Surgical History: Denies Medical/Surgical History HEENT History: Reports: Other (See Below) Other HEENT History: wears glasses/contacts Cardiovascular History: Reports: Other (See Below) Other Cardiovascular History: varicose veins Genitourinary History: Reports: None [employer]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: 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: Musculoskeletal History: Reports: Back Pain, Chronic, Fracture Other Musculoskeletal History: hx fx foot Neurological History: Reports: None, Other (See Below) (h/o migrains, no more) Psychiatric History: Reports: Anxiety Endocrine/Metabolic History: Reports: None Hematologic History: Reports: Anemia Immunologic History: Reports: None Oncologic (Cancer) History: Reports: None Dermatologic History: Reports: None - Past Surgical History Head Surgeries/Procedures: Reports: None Female Surgical History: Reports: Breast Implant, Cystectomy, Other (See Below) Other Female Surgeries/Procedures: breast augmentation, laparotomy with ovarian cystectomy Musculoskeletal Surgical History: Reports: Arthroscopic Knee, Other (See Below) Other Musculoskeletal Surgeries/Procedures:: Right knee meniscectomy and cyst removed Social & Family History - Family History Family Medical History: No Pertinent Family History - Caffeine Use Caffeine Use: Reports: Coffee ED ROS GENERAL - Review of Systems Review Of Systems: Comprehensive ROS is negative, except as noted in HPI. ED EXAM, GENERAL - Physical Exam Exam: See Below Exam Limited By: No Limitations General Appearance: Alert, WD/WN, Other (Uncomfortable appearing, moving around in the stretcher with difficulty finding position of comfort) Ears: Hearing Grossly Normal Throat/Mouth: Normal Voice, No Airway Compromise Head: Atraumatic, Normocephalic Neck: Normal Inspection Respiratory/Chest: No Respiratory Distress, Lungs Clear, Normal Breath Sounds, No Accessory Muscle Use Cardiovascular: Normal Peripheral Pulses, Regular Rate, Rhythm GI/Abdominal: Soft, Other (Diffuse subjective tenderness to palpation worse in the right lower quadrant without guarding) Extremities: Normal Inspection Neurological: Alert, Normal Cognition, Normal Gait Psychiatric: Normal Affect, Normal Mood Skin Exam: Warm, Dry, Intact, Normal Color Course - Vital Signs Last Recorded V/S: Last Vital Signs Temp 98.1 F 04/29/21 07:19 Pulse 63 04/29/21 09:32 Resp 17 04/29/21 09:32 BP 102/61 04/29/21 09:32 Pulse Ox 94 L 04/29/21 09:32 - Orders/Labs/Meds Orders: Active Orders 24 hr Category Date Time Status Sodium Chloride 0.9% [Saline Flush] Med 04/29/21 07:28 Active 10 ml FLUSH ASDIRECTED PRN Sodium Chloride 0.9% [Saline Flush] Med 04/29/21 07:28 Active 2.5 ml FLUSH ASDIRECTED PRN Saline Lock Insert [OM.PC] Stat Oth 04/29/21 07:28 Ordered Medication Orders Sodium Chloride (Sodium Chloride 0.9% 2.5 Ml Syringe) 2.5 ml FLUSH ASDIRECTED PRN PRN Reason: Keep Vein Open Last Admin: 04/29/21 07:47 Dose: 2.5 ml Documented by: GATO Sodium Chloride (Sodium Chloride 0.9% 10 Ml Syringe) 10 ml FLUSH ASDIRECTED PRN PRN Reason: Keep Vein Open Last Admin: 04/29/21 07:47 Dose: 10 ml Documented by: GATO Labs: Laboratory Tests 04/29/21 04/29/21 04/29/21 Range/Units 07:28 07:28 07:31 WBC 10.35 (4.0-11.0) K/uL RBC 4.49 (4.30-5.90) M/uL Hgb 15.1 (12.0-16.0) g/dL Hct 44.7 (36.0-46.0) % MCV 99.6 H (80.0-98.0) fL MCH 33.6 H (27.0-32.0) pg MCHC 33.8 (31.0-37.0) g/dL RDW Std Deviation 51.5 (28.0-62.0) fl RDW Coeff of Aristides 14 (11.0-15.0) % Plt Count 218 (150-400) K/uL MPV 11.10 (7.40-12.00) fL Neut % (Auto) 70.8 (48.0-80.0) % Lymph % (Auto) 19.8 (16.0-40.0) % [place] % (Auto) 7.6 (0.0-15.0) % Eos % (Auto) 1.6 (0.0-7.0) % Baso % (Auto) 0.2 (0.0-1.5) % Neut # (Auto) 7.3 H (1.4-5.7) K/uL Lymph # (Auto) 2.1 (0.6-2.4) K/uL [place] # (Auto) 0.8 (0.0-0.8) K/uL Eos # (Auto) 0.2 (0.0-0.7) K/uL Baso # (Auto) 0.0 (0.0-0.1) K/uL Nucleated RBC % 0.0 /100WBC Nucleated RBCs # 0 K/uL Sodium (136-145) mmol/L Potassium (3.5-5.1) mmol/L Chloride (98-107) mmol/L Carbon Dioxide (21.0-32.0) mmol/L BUN (7.0-18.0) mg/dL Creatinine (0.6-1.0) mg/dL Est Cr Clr Drug Dosing mL/min Estimated GFR (MDRD) ml/min Glucose (74-106) mg/dL Lactic Acid (0.4-2.0) mmol/L Calcium (8.5-10.1) mg/dL Magnesium (1.8-2.4) mg/dL Total Bilirubin (0.2-1.0) mg/dL AST (15-37) IU/L ALT (14-63) IU/L Alkaline Phosphatase (46-116) U/L Total Protein (6.4-8.2) g/dL Albumin (3.4-5.0) g/dL Globulin (2.6-4.0) g/dL Albumin/Globulin Ratio (0.9-1.6) Lipase (73-393) U/L Urine Color YELLOW Urine Appearance CLEAR Urine pH 5.5 (5.0-8.0) Ur Specific [place] 1.025 (1.001-1.035) Urine Protein NEGATIVE (NEGATIVE) mg/dL Urine Glucose (UA) NEGATIVE (NEGATIVE) mg/dL Urine Ketones NEGATIVE (NEGATIVE) mg/dL Urine Occult Blood NEGATIVE (NEGATIVE) Urine Nitrite NEGATIVE (NEGATIVE) Urine Bilirubin NEGATIVE (NEGATIVE) Urine Urobilinogen 0.2 (<2.0) EU/dL Ur Leukocyte Esterase NEGATIVE (NEGATIVE) Urine HCG, Qual NEGATIVE (NEGATIVE) 04/29/21 04/29/21 Range/Units 07:31 07:40 WBC (4.0-11.0) K/uL RBC (4.30-5.90) M/uL Hgb (12.0-16.0) g/dL Hct (36.0-46.0) % MCV (80.0-98.0) fL MCH (27.0-32.0) pg MCHC (31.0-37.0) g/dL RDW Std Deviation (28.0-62.0) fl RDW Coeff of Aristides (11.0-15.0) % Plt Count (150-400) K/uL MPV (7.40-12.00) fL Neut % (Auto) (48.0-80.0) % Lymph % (Auto) (16.0-40.0) % [place] % (Auto) (0.0-15.0) % Eos % (Auto) (0.0-7.0) % Baso % (Auto) (0.0-1.5) % Neut # (Auto) (1.4-5.7) K/uL Lymph # (Auto) (0.6-2.4) K/uL [place] # (Auto) (0.0-0.8) K/uL Eos # (Auto) (0.0-0.7) K/uL Baso # (Auto) (0.0-0.1) K/uL Nucleated RBC % /100WBC Nucleated RBCs # K/uL Sodium 140 (136-145) mmol/L Potassium 4.3 (3.5-5.1) mmol/L Chloride 103 (98-107) mmol/L Carbon Dioxide 27.9 (21.0-32.0) mmol/L BUN 14 (7.0-18.0) mg/dL Creatinine 0.7 (0.6-1.0) mg/dL Est Cr Clr Drug Dosing 80.27 mL/min Estimated GFR (MDRD) > 60.0 ml/min Glucose 100 (74-106) mg/dL Lactic Acid 1.1 (0.4-2.0) mmol/L Calcium 9.0 (8.5-10.1) mg/dL Magnesium 2.0 (1.8-2.4) mg/dL Total Bilirubin 0.3 (0.2-1.0) mg/dL AST 22 (15-37) IU/L ALT 31 (14-63) IU/L Alkaline Phosphatase 107 (46-116) U/L Total Protein 7.4 (6.4-8.2) g/dL Albumin 3.8 (3.4-5.0) g/dL Globulin 3.6 (2.6-4.0) g/dL Albumin/Globulin Ratio 1.1 (0.9-1.6) Lipase 98 (73-393) U/L Urine Color Urine Appearance Urine pH (5.0-8.0) Ur Specific [place] (1.001-1.035) Urine Protein (NEGATIVE) mg/dL Urine Glucose (UA) (NEGATIVE) mg/dL Urine Ketones (NEGATIVE) mg/dL Urine Occult Blood (NEGATIVE) Urine Nitrite (NEGATIVE) Urine Bilirubin (NEGATIVE) Urine Urobilinogen (<2.0) EU/dL Ur Leukocyte Esterase (NEGATIVE) Urine HCG, Qual (NEGATIVE) Meds: Medications Generic Name Dose Route Start Last Admin Trade Name Freq PRN Reason Stop Dose Admin Sodium Chloride 2.5 ml 04/29/21 07:28 04/29/21 07:47 Sodium Chloride 0.9% 2.5 Ml Syringe FLUSH 2.5 ml ASDIRECTED PRN Administration Keep Vein Open Sodium Chloride 10 ml 04/29/21 07:28 04/29/21 07:47 Sodium Chloride 0.9% 10 Ml Syringe FLUSH 10 ml ASDIRECTED PRN Administration Keep Vein Open Discontinued Medications Generic Name Dose Route Start Last Admin Trade Name German PRN Reason Stop Dose Admin Hydromorphone HCl 1 mg 04/29/21 08:01 04/29/21 08:10 Hydromorphone 1 Mg/Ml Syringe IVPUSH 04/29/21 08:02 1 mg ONETIME ONE Administration Sodium Chloride 1,000 mls @ 999 mls/hr 04/29/21 07:28 04/29/21 07:44 Normal Saline IV 04/29/21 08:28 999 mls/hr .Bolus ONE Administration Iopamidol 100 ml 04/29/21 08:56 04/29/21 08:57 Iopamidol 755 Mg/Ml 500 Ml Multipack Bottle IVPUSH 04/29/21 08:57 100 ml ONETIME ONE Administration Morphine Sulfate 4 mg 04/29/21 07:28 04/29/21 07:44 Morphine 4 Mg/Ml Syringe IVPUSH 04/29/21 07:29 4 mg ONETIME ONE Administration Ondansetron HCl 4 mg 04/29/21 07:28 04/29/21 07:47 Ondansetron 4 Mg/2 Ml Sdv IVPUSH 04/29/21 07:29 4 mg ONETIME ONE Administration Ondansetron HCl 4 mg 04/29/21 08:53 04/29/21 09:01 Ondansetron 4 Mg/2 Ml Sdv IVPUSH 04/29/21 08:54 4 mg ONETIME ONE Administration - Re-Assessments/Exams Free Text/Narrative Re-Assessment/Exam: 04/29/21 08:26 Labs are unremarkable. Patient was still in significant amount of pain despite morphine. Dilaudid ordered for better analgesia. We will follow-up CT imaging and reassess. 04/29/21 10:10 CT imaging does not reveal any obstructive pathology or any signs of appendicitis, cholecystitis, other acute intra-abdominal pathology. My review of the CT it does appear the patient has a lot of gas and stool. Patient is clinically feeling much better. Will discharge patient with medications for symptomatic relief and follow-up PMD. Return precautions discussed. Departure - Departure Time of Disposition: 10:13 Disposition: Home, Self-Care 01 Condition: Good Clinical Impression: Abdominal pain Qualifiers: Abdominal location: periumbilical Qualified Code(s): R10.33 - Periumbilical pain - Discharge Information Prescriptions: Dicyclomine [Bentyl] 10 mg PO TID PRN #20 cap PRN Reason: Abdominal Pain Ondansetron [Zofran ODT] 4 mg PO Q6H PRN #10 tab.dis PRN Reason: Nausea/Vomiting Instructions: Abdominal Pain, Adult, [id number] Referrals: PCP,None [Primary Care Provider] - Forms: ED Department Discharge Additional Instructions: Your labs and CT were unremarkable. You did have a lot of gas and stool on your CT imaging but there was no evidence of obstruction or infection. I have sent medications to your pharmacy that can help symptomatically. You should follow- up with your primary care physician. If pain becomes intolerable, changes, if you start vomiting and are unable to keep anything down then you should come back to the hospital for reassessment. The following information is given to patients seen in the emergency department who are being discharged to home. This information is to outline your options for follow-up care. We provide all patients seen in our emergency department with a follow-up referral. The need for follow-up, as well as the timing and circumstances, are variable depending upon the specifics of your emergency department visit. If you don't have a primary care physician on staff, we will provide you with a referral. We always advise you to contact your personal physician following an emergency department visit to inform them of the circumstance of the visit and for follow-up with them and/or the need for any referrals to a consulting specialist. The emergency department will also refer you to a specialist when appropriate. This referral assures that you have the opportunity for follow-up care with a specialist. All of these measure are taken in an effort to provide you with optimal care, which includes your follow-up. Under all circumstances we always encourage you to contact your private physician who remains a resource for coordinating your care. When calling for follow-up care, please make the office aware that this follow-up is from your recent emergency room visit. If for any reason you are refused follow-up, please contact the [facility] Department at and asked to speak to the emergency department charge nurse. Please follow up with your primary care physician. If you do not have a primary care physician, see below: [facility] [address], [place] [id number] [facility] [address] [place] [address] [facility] [address] [place], [place] [address] Sepsis Event Note (ED) - Focused Exam Vital Signs: Vital Signs Temp Pulse Resp BP Pulse Ox 04/29/21 09:32 63 17 102/61 94 L 04/29/21 09:00 67 17 106/67 93 L 04/29/21 08:41 74 17 108/49 L 97 04/29/21 08:13 71 18 115/76 98 04/29/21 07:19 98.1 F 73 20 121/63 97 - My Orders Last 24 Hours: My Active Orders 04/29/21 07:28 Sodium Chloride 0.9% [Saline Flush] 10 ml FLUSH ASDIRECTED PRN Sodium Chloride 0.9% [Saline Flush] 2.5 ml FLUSH ASDIRECTED PRN Saline Lock Insert [OM.PC] Stat - Assessment/Plan Last 24 Hours: My Active Orders 04/29/21 07:28 Sodium Chloride 0.9% [Saline Flush] 10 ml FLUSH ASDIRECTED PRN Sodium Chloride 0.9% [Saline Flush] 2.5 ml FLUSH ASDIRECTED PRN Saline Lock Insert [OM.PC] Stat
[2021-04-29] MEDS ORDERED: Sodium Chloride 0.9% 2.5 ML Syringe FLUSH PRN (07:28)
[2021-04-29] MEDS ORDERED: Sodium Chloride 0.9% 10 ML Syringe FLUSH PRN (07:28)
[2021-04-29] MEDS ORDERED: Ondansetron 4 MG/2 ML SDV IVPUSH ONE ×2 (07:28→08:53)
[2021-04-29] MEDS ORDERED: Sodium Chloride 0.9% 1,000 ML IV ONE (07:28)
[2021-04-29] MEDS ORDERED: Morphine 4 MG/ML Syringe IVPUSH ONE (07:28)
[2021-04-29] MEDS ORDERED: HYDROmorphone 1 MG/ML Syringe IVPUSH ONE (08:01)
[2021-04-29 08:07] LABS: BLOOD UREA NITROGEN,BUN 14 mg/dL (7.0-18.0); CARBON DIOXIDE,CO2 27.9 mmol/L (21.0-32.0); CHLORIDE,CL 103 mmol/L (98-107); GLUCOSE RANDOM 100 mg/dL (74-106); LIPASE 98 U/L (73-393); POTASSIUM,K 4.3 mmol/L (3.5-5.1); SODIUM,NA 140 mmol/L (136-145)
[2021-04-29] MEDS ORDERED: Iopamidol 755 MG/ML 500 ML Multipack Bottle IVPUSH ONE (08:56)
--- NOTE | 2021-04-29 09:24 | CT ---
INDICATION: Right lower quadrant abdomen pain. TECHNIQUE: CT abdomen and pelvis acquired with 100 cc Isovue 370 IV contrast. COMPARISON: November 01, 2019. FINDINGS: Lower chest: Unremarkable. Liver: Unremarkable. Normal in size and attenuation. No suspicious masses. Gallbladder and bile ducts: Unremarkable. No stones or inflammation. No biliary dilatation. Pancreas: Unremarkable. No mass or inflammation. Spleen: Unremarkable. Normal in size. No masses. Adrenal glands: Unremarkable. No nodules. Kidneys: Unremarkable. No suspicious masses, stones, or hydronephrosis. GI tract: Unremarkable. Normal in caliber. No sign of mass or inflammation. Normal appendix. Vasculature: Unremarkable. Mesenteric arteries are patent. Lymph nodes: No lymphadenopathy. Omentum/Peritoneum/Abdominal Wall: Unremarkable. No sign of mass or infiltration. No free air or significant free fluid. Pelvis: Unremarkable. Bones: Unremarkable for age. IMPRESSION: Unremarkable CT of the abdomen and pelvis. No findings to explain right lower quadrant abdomen pain. Specifically the appendix and GI tract are normal. Please note that all CT scans at this facility use dose modulation, iterative reconstruction, and/or weight-based dosing when appropriate to reduce radiation dose to as low as reasonably achievable. Dictated by Emmanuel Cameron MD @ 04/29/2021 9:24:[address] Emmanuel Cameron @ Apr 29 2021 9:24AM
[2021-04-29 11:09] VITALS: BP 114/64; PULSE 58
== END 2021-04-29 10:25 | disposition home or self-care (01) ==
LOC: MW.ED 07:09
DX: R10.33 Periumbilical pain (principal); R10.813 Right lower quadrant abdominal tenderness
CPT/HCPCS: 36415; 74177; 80053; 81003; 81025; 83605; 83690; 83735; 85025; 96374; 96375; 99284; J1170; J2270; J2405; J7030; Q9967; 99283

== ENCOUNTER 2022-09-26 09:05 | Emergency (ER) | payer BC ==
[2022-09-26 09:24] VITALS: BP 132/74; PULSE 84
[2022-09-26] MEDS ORDERED: Lidocaine 1% 5 ML VIAL INJECT ONE (09:44)
[2022-09-26] MEDS ORDERED: Ibuprofen 600 MG Tab PO ONE (09:47)
[2022-09-26] MEDS ORDERED: Diphtheria,Pertussis(Acell),Tetanus Vaccine 0.5 ML Syringe IM ONE (10:12)
== END 2022-09-26 15:01 | disposition home or self-care (01) ==
LOC: MW.ED 09:05
DX: S61.226A Laceration with foreign body of right little finger without damage to nail, initial encounter (principal); F17.210 Nicotine dependence, cigarettes, uncomplicated; Z23 Encounter for immunization; W25.XXXA Contact with sharp glass, initial encounter
CPT/HCPCS: 73120; 90471; 90715; 99283; A9270

== ENCOUNTER 2025-02-06 18:35 | Emergency (ER) | payer BC ==
[2025-02-06] MEDS ORDERED: Sodium Chloride 0.9% 10 ML Syringe FLUSH PRN (18:47)
[2025-02-06] MEDS: Iopamidol 755 MG/ML 500 ML Multipack Bottle IVPUSH ONE (19:27)
[2025-02-06 19:40] LABS: BASOPHILS ABSOLUTE AUTO 0.05 K/uL (0.00-0.20); BASOPHILS PERCENT AUTO 0.7 % (0.0-1.0); EOSINOPHILS ABSOLUTE AUTO 0.17 K/uL (0.00-0.45); EOSINOPHILS PERCENT AUTO 2.4 % (0.0-6.0); HEMATOCRIT 39.4 % (37.0-47.0); HEMOGLOBIN 13.7 g/dL (12.0-16.0); IMMATURE GRAN ABSOLUTE AUTO 0.01 K/uL (0.00-0.05); IMMATURE GRAN PERCENT AUTO 0.1 % (0.0-0.4); LYMPHOCYTES ABSOLUTE AUTO 2.37 K/uL (1.00-4.80); LYMPHOCYTES PERCENT AUTO 32.9 % (24.0-44.0); MEAN CORPUSCULAR HEMOGLOBIN 33.5 pg (28.0-32.0); MEAN CORPUSCULAR HGB CONC 34.8 g/dL (32.0-36.0); MEAN CORPUSCULAR VOLUME 96.3 fL (83.0-99.0); MEAN PLATELET VOLUME 10.4 fL (9.4-12.3); MONOCYTES ABSOLUTE AUTO 0.89 K/uL (0.00-0.80); MONOCYTES PERCENT AUTO 12.3 % (0.0-8.0); NEUTROPHILS ABSOLUTE AUTO 3.72 K/uL (1.80-7.70); NEUTROPHILS PERCENT AUTO 51.6 % (41.0-71.0); PLATELET COUNT,PLT 170 K/uL (150-400); RED BLOOD CELL COUNT 4.09 M/uL (4.10-5.30); WHITE BLOOD CELL COUNT,WBC 7.21 K/uL (3.9-11.3)
[2025-02-06 19:55] LABS: INR 0.96 (0.86-1.11)
[2025-02-06 20:01] LABS: A/G RATIO 1.3 (0.9-1.6); ALBUMIN 3.9 g/dL (3.4-5.0); BILIRUBIN TOTAL 0.4 mg/dL (0.2-1.0); CALCIUM 8.6 mg/dL (8.5-10.1); CARBON DIOXIDE,CO2 23.2 mmol/L (21.0-32.0); CREATININE 0.7 mg/dL (0.6-1.0); EST CRCL DRUG DOSING (CG) 77.73 mL/min; POTASSIUM,K 3.3 mmol/L (3.5-5.1); PROTEIN TOTAL,TP 6.9 g/dL (6.4-8.2)
[2025-02-06] MEDS: Ondansetron 4 MG/2 ML SDV IVPUSH ONE (20:26)
[2025-02-06] MEDS: Ketorolac 30 MG/ML SDV IVPUSH ONE (20:28)
[2025-02-06] MEDS: Methocarbamol 750 MG Tab PO ONE (20:29)
[2025-02-06 20:42] VITALS: BP 135/73; PULSE 69
== END 2025-02-06 20:40 | disposition home or self-care (01) ==
LOC: MW.ED 18:35
DX: S16.1XXA Strain of muscle, fascia and tendon at neck level, initial encounter (principal); S20.211A Contusion of right front wall of thorax, initial encounter; S09.90XA Unspecified injury of head, initial encounter; Z79.899 Other long term (current) drug therapy; V43.62XA Car passenger injured in collision with other type car in traffic accident, initial encounter; Y92.410 Unspecified street and highway as the place of occurrence of the external cause
CPT/HCPCS: 36415; 70450; 70450-26; 71260; 71260-26; 72125; 72125-26; 73560-26-LT; 73560-LT; 74177; 74177-26; 80053; 80307; 85025; 85610; 96374; 96375; 99283; 99285-25; A9270-GY; J1885; J2405; Q9967